=== PATIENT | female | born 1960 | race Caucasian/White ===

== ENCOUNTER 2017-01-30 12:33 | Emergency (ER) | payer MEDICARE ==
--- NOTE | 2017-01-30 13:23 | RAD ---
Indication cough. PA and lateral views of the chest were obtained. Note is made of a previous examination 10/25/2007. The heart and pulmonary vessels are unremarkable. The lungs are clear. There is a densely calcified granuloma in the right lower lobe similar to a study October 24, 2007 and well characterized on a CT examination October 11, 2006. There is no pleural fluid. There is no pneumothorax. Visualized bony structures appear grossly intact. IMPRESSION: No acute or focal process seen in the chest
--- NOTE | 2017-01-30 13:31 | PHYS DOC ---
Past Medical History Past Medical History: Other Additional Past Medical Histor: chronic back pain Past Surgical History: No Surgical History Additional Information: 10/02 ppd Alcohol Use: None Drug Use: Opiates Social History Narrative: prescribed Adult General Chief Complaint Chief Complaint: cough, sinus congestion, weight loss, rash HPI HPI Patient is a 56 year old female who presents with greater than 1 month of feeling drained, cough, sinus drainage. She's also had intermittent "rash" on bilateral thighs, burning in nature, wounds heal and then resolve with new lesions appearing. No recent steroids, no other known sick contacts. Pt was told she had shingles. Denies fevers, reports 20pound weight loss in 3-4 months, no change in bowel movements or urination. Has pcp in [place]. Review of Systems Review of Systems Constitutional: Denies fever or chills [] Eyes: Denies change in visual acuity, redness, or eye pain [] HENT: per hpi Respiratory: per hpi Cardiovascular: No additional information not addressed in HPI [] GI: Denies abdominal pain, nausea, vomiting, bloody stools or diarrhea [] : Denies dysuria or hematuria [] Musculoskeletal: Denies back pain or joint pain [] Integument: per hpi Neurologic: Denies headache, focal weakness or sensory changes [] Allergies Allergies Allergies Coded Allergies Type Severity Reaction Last Updated Verified Penicillins Allergy Mild Nausea 01/30/17 Yes Sulfa (Sulfonamide Antibiotics) Allergy Mild Nausea 01/30/17 Yes Physical Exam Physical Exam Constitutional: Well developed, frail, thin, no acute distress, non-toxic appearance. [] HENT: Normocephalic, atraumatic, bilateral external ears normal, oropharynx moist, no oral exudates, nose normal. [] Eyes: PERRLA, EOMI, conjunctiva normal, no discharge. [] Neck: Normal range of motion, no tenderness, supple, no stridor. [] Cardiovascular:Heart rate regular with regular rhythm, no murmur [] Lungs & Thorax: Bilateral breath sounds clear to auscultation, no wheeze or crackles Abdomen: Bowel sounds normal, soft, no tenderness, no masses, no pulsatile masses. [] Skin: Warm, dry, circular lesions on buttocks and posterior thighs, maccular, some with abrased skin lesions, various stages, no surrounding erythema, satellite lesions on neck and face, few on lower abdomen. Back: No tenderness, no CVA tenderness. [] Extremities: No tenderness, no cyanosis, no clubbing, ROM intact, no edema. [] Neurologic: Alert and oriented X 3, normal motor function, normal sensory function, no focal deficits noted. [] Psychologic: Affect normal, judgement normal, mood normal. [] Current Patient Data Vital Signs Vital Signs Date Time Temp Pulse Resp B/P Pulse Ox O2 Delivery O2 Flow Rate FiO2 01/30/17 14:30 75 20 127/70 99 Room Air 01/30/17 12:56 98.6 98.6 Lab Values Laboratory Tests Test 01/30/17 13:20 White Blood Count 8.9x10^3/uL (4.0-11.0) Red Blood Count 5.33x10^6/uL (3.50-5.40) Hemoglobin 17.0g/dL (12.0-15.5) H Hematocrit 49.0% (36.0-47.0) H Mean Corpuscular Volume 92fL (79-100) Mean Corpuscular Hemoglobin 32pg (25-35) Mean Corpuscular Hemoglobin Concent 35g/dL (31-37) Red Cell Distribution Width 13.6% (11.5-14.5) Platelet Count 279x10^3/uL (140-400) Neutrophils (%) (Auto) 58% (31-73) Lymphocytes (%) (Auto) 35% (24-48) Monocytes (%) (Auto) 5% (0-9) Eosinophils (%) (Auto) 2% (0-3) Basophils (%) (Auto) 1% (0-3) Neutrophils # (Auto) 5.2x10^3uL (1.8-7.7) Lymphocytes # (Auto) 3.1x10^3/uL (1.0-4.8) Monocytes # (Auto) 0.4x10^3/uL (0.0-1.1) Eosinophils # (Auto) 0.1x10^3/uL (0.0-0.7) Basophils # (Auto) 0.1x10^3/uL (0.0-0.2) Sodium Level 140mmol/L (136-145) Potassium Level 3.7mmol/L (3.5-5.1) Chloride Level 105mmol/L (98-107) Carbon Dioxide Level 28mmol/L (21-32) Anion Gap 7 (6-14) Blood Urea Nitrogen 10mg/dL (7-20) Creatinine 0.8mg/dL (0.6-1.0) Estimated GFR (Cockcroft-Gault) 74.5 BUN/Creatinine Ratio 13 (6-20) Glucose Level 104mg/dL (70-99) H Calcium Level 10.0mg/dL (8.5-10.1) Total Bilirubin 0.4mg/dL (0.2-1.0) Aspartate Amino Transferase (AST) 15U/L (15-37) Alanine Aminotransferase (ALT) 21U/L (14-59) Alkaline Phosphatase 112U/L (46-116) Total Protein 7.1g/dL (6.4-8.2) Albumin 3.7g/dL (3.4-5.0) Albumin/Globulin Ratio 1.1 (1.0-1.7) Laboratory Tests 01/30/17 13:20 Laboratory Tests 01/30/17 13:20 EKG EKG [] Radiology/Procedures Radiology/Procedures CXR: Indication cough. PA and lateral views of the chest were obtained. Note is made of a previous examination 10/25/2007. The heart and pulmonary vessels are unremarkable. The lungs are clear. There is a densely calcified granuloma in the right lower lobe similar to a study October 24, 2007 and well characterized on a CT examination October 11, 2006. There is no pleural fluid. There is no pneumothorax. Visualized bony structures appear grossly intact. IMPRESSION: No acute or focal process seen in the chest Course & Med Decision Making Course & Med Decision Making Pertinent Labs and Imaging studies reviewed. (See chart for details) based on complaints, labs and CXR performed. No acute findings. Will treat with antibiotics , doxycycline, and instructed pt to f/u with PCP closely. Recommended washing all bedding/clothes Diagnosis: sinusitis, unspecified rash Dragon Disclaimer Dragon Disclaimer This electronic medical record was generated, in whole or in part, using a voice recognition dictation system. Departure Departure Referrals: DELMIS BOURGEOIS (PCP) Scripts Doxycycline Hyclate 100 Mg Tablet1 Tab PO BID #14 TAB Prov:WEI CARLSON MD 01/30/17 WEI CARLSON MD January 30, 2017 13:31
[2017-01-30 13:32] LABS: BASO # 0.1 x10^3/uL (0.0-0.2); BASO % 1 % (0-3); EOS % 2 % (0-3); LYMPH # 3.1 x10^3/uL (1.0-4.8); LYMPH % 35 % (24-48); MEAN CORPUSCULAR HEMOGLOBIN 32 pg (25-35); MEAN CORPUSCULAR HGB CONC 35 g/dL (31-37); MEAN CORPUSCULAR VOLUME 92 fL (79-100); MONO % 5 % (0-9); NEUT % 58 % (31-73); PLATELET COUNT 279 x10^3/uL (140-400); RED BLOOD COUNT 5.33 x10^6/uL (3.50-5.40); RED CELL DISTRIBUTION WIDTH 13.6 % (11.5-14.5); WHITE BLOOD COUNT 8.9 x10^3/uL (4.0-11.0)
[2017-01-30 13:56] LABS: ALBUMIN 3.7 g/dL (3.4-5.0); ALBUMIN/GLOBULIN RATIO 1.1 (1.0-1.7); CREATININE 0.8 mg/dL (0.6-1.0); GFR 74.5; POTASSIUM 3.7 mmol/L (3.5-5.1); TOTAL BILIRUBIN 0.4 mg/dL (0.2-1.0); TOTAL PROTEIN 7.1 g/dL (6.4-8.2)
[2017-01-30 14:30] VITALS: BP 127/70
[2017-01-30] MEDS ORDERED: DOXY100T PO (14:44)
== END 2017-01-30 14:55 | disposition home or self-care (01) ==
LOC: ER 12:33
DX: J32.9 Chronic sinusitis, unspecified (principal); R21 Rash and other nonspecific skin eruption; G89.29 Other chronic pain; F11.10 Opioid abuse, uncomplicated; F17.200 Nicotine dependence, unspecified, uncomplicated; Z88.0 Allergy status to penicillin; Z88.2 Allergy status to sulfonamides
CPT/HCPCS: 36415; 71020; 80053; 85027; 99285-25

== ENCOUNTER 2017-03-11 15:14 | Emergency (ER) | payer MEDICARE ==
[~2017-03-11] VITALS: Ht 160 cm; Wt 54.4 kg
[~2017-03-11 15:14] MED LIST: DOXY100T PO
--- NOTE | 2017-03-11 16:34 | PHYS DOC ---
Past Medical History Past Medical History: Other Additional Past Medical Histor: chronic back pain Past Surgical History: Tubal ligation Additional Information: PPD Alcohol Use: None Drug Use: Opiates Adult General Chief Complaint Chief Complaint: Palpitations HPI HPI Patient is a 56 year old female who presents with palpitations the last 2 months. She states she's been having this fluttering sensation in her chest is been constant ever since she moved and this old house. She's also been complaining about sinus congestion the same amount time. She states she has pressure in the frontal aspect of her head. She denies any chest pain, but feels short of breath especially when she tries to exert herself or stand up. She does smoke one pack of cigarettes a day and she's done that for the last 40 years. She denies any alcohol or drug use. Review of Systems Review of Systems Constitutional: Denies fever or chills [] Eyes: Denies change in visual acuity, redness, or eye pain [] HENT: Denies nasal congestion or sore throat [] Respiratory: Denies cough, positive for intermittent shortness of breath [] Cardiovascular: No additional information not addressed in HPI [] GI: Denies abdominal pain, nausea, vomiting, bloody stools or diarrhea [] : Denies dysuria or hematuria [] Musculoskeletal: Denies back pain or joint pain [] Integument: Denies rash or skin lesions [] Neurologic: Denies headache, focal weakness or sensory changes [] Endocrine: Denies polyuria or polydipsia [] Current Medications Current Medications Current Medications Medications (Trade) Dose Ordered Sig/Jackie Start Time Stop Time Status Last Admin Dose Admin Iohexol (Omnipaque 300 Mg/ml) 75 ml 1X ONCE 03/11/17 18:15 03/11/17 18:16 DC 03/11/17 18:14 75 ML Allergies Allergies Allergies Coded Allergies Type Severity Reaction Last Updated Verified Penicillins Allergy Mild Nausea 01/30/17 Yes Sulfa (Sulfonamide Antibiotics) Allergy Mild Nausea 01/30/17 Yes Physical Exam Physical Exam Constitutional: Well developed, well nourished, no acute distress, non-toxic appearance. [] HENT: Normocephalic, atraumatic, bilateral external ears normal, oropharynx moist, no oral exudates, nose normal. [] Eyes: PERRLA, EOMI, conjunctiva normal, no discharge. [] Neck: Normal range of motion, no tenderness, supple, no stridor. [] Cardiovascular:Heart rate regular rhythm, no murmur [] Lungs & Thorax: Bilateral breath sounds clear to auscultation [] Abdomen: Bowel sounds normal, soft, no tenderness, no masses, no pulsatile masses. [] Skin: Warm, dry, no erythema, no rash. [] Back: No tenderness, no CVA tenderness. [] Extremities: No tenderness, no cyanosis, no clubbing, ROM intact, no edema. [] Neurologic: Alert and oriented X 3, normal motor function, normal sensory function, no focal deficits noted. [] Psychologic: Affect normal, judgement normal, mood normal. [] Current Patient Data Vital Signs Vital Signs Date Time Temp Pulse Resp B/P (MAP) Pulse Ox O2 Delivery O2 Flow Rate FiO2 03/11/17 15:45 98.2 76 16 134/82 (99) 99 Room Air 98.2 Lab Values Laboratory Tests Test 03/11/17 16:10 03/11/17 16:26 03/11/17 17:00 03/11/17 17:15 POC Urine HCG, Qualitative Hcg negative (Negative) White Blood Count 8.9 x10^3/uL (4.0-11.0) Red Blood Count 4.94 x10^6/uL (3.50-5.40) Hemoglobin 15.8 g/dL (12.0-15.5) H Hematocrit 46.0 % (36.0-47.0) Mean Corpuscular Volume 93 fL (79-100) Mean Corpuscular Hemoglobin 32 pg (25-35) Mean Corpuscular Hemoglobin Concent 35 g/dL (31-37) Red Cell Distribution Width 13.7 % (11.5-14.5) Platelet Count 264 x10^3/uL (140-400) Neutrophils (%) (Auto) 48 % (31-73) Lymphocytes (%) (Auto) 44 % (24-48) Monocytes (%) (Auto) 6 % (0-9) Eosinophils (%) (Auto) 2 % (0-3) Basophils (%) (Auto) 1 % (0-3) Neutrophils # (Auto) 4.3 x10^3uL (1.8-7.7) Lymphocytes # (Auto) 3.9 x10^3/uL (1.0-4.8) Monocytes # (Auto) 0.5 x10^3/uL (0.0-1.1) Eosinophils # (Auto) 0.2 x10^3/uL (0.0-0.7) Basophils # (Auto) 0.1 x10^3/uL (0.0-0.2) Sodium Level 141 mmol/L (136-145) Potassium Level 3.4 mmol/L (3.5-5.1) L Chloride Level 104 mmol/L (98-107) Carbon Dioxide Level 28 mmol/L (21-32) Anion Gap 9 (6-14) Blood Urea Nitrogen 11 mg/dL (7-20) Creatinine 0.7 mg/dL (0.6-1.0) Estimated GFR (Cockcroft-Gault) 86.9 Glucose Level 85 mg/dL (70-99) Calcium Level 9.3 mg/dL (8.5-10.1) Magnesium Level 2.2 mg/dL (1.8-2.4) Total Bilirubin 0.2 mg/dL (0.2-1.0) Direct Bilirubin < 0.1 mg/dL (0.0-0.2) Aspartate Amino Transferase (AST) 14 U/L (15-37) L Alanine Aminotransferase (ALT) 20 U/L (14-59) Alkaline Phosphatase 122 U/L (46-116) H Creatine Kinase 31 U/L (26-192) Creatine Kinase MB (Mass) < 0.5 ng/mL (0.0-3.6) Creatine Kinase MB Relative Index 1.6 % (0-4) Troponin I Quantitative < 0.017 ng/mL (0.000-0.055) HC-Fto-U-Type Natriuretic Peptide 133 pg/mL (0-124) H Total Protein 7.2 g/dL (6.4-8.2) Albumin 3.5 g/dL (3.4-5.0) Thyroid Stimulating Hormone (TSH) 1.072 uIU/mL (0.358-3.74) Serum Test, Qualitative Negative (NEG) Urine Collection Type Unknown Urine Color Yellow Urine Clarity Clear Urine pH 7.0 Urine Specific Rousseau <=1.005 Urine Protein Negative mg/dL (NEG-TRACE) Urine Glucose (UA) Negative mg/dL (NEG) Urine Ketones (Stick) Negative mg/dL (NEG) Urine Blood Negative (NEG) Urine Nitrite Negative (NEG) Urine Bilirubin Negative (NEG) Urine Urobilinogen Dipstick 0.2 mg/dL (0.2 mg/dL) Urine Leukocyte Esterase Negative (NEG) Urine RBC 0 /HPF (0-2) Urine WBC 0 /HPF (0-4) Urine Squamous Epithelial Cells Occ /LPF Urine Bacteria 0 /HPF (0-FEW) D-Dimer (Usha) 1.04 ug/mlFEU (0.00-0.50) H Laboratory Tests 03/11/17 16:26 Laboratory Tests 03/11/17 16:26 EKG EKG EKG shows sinus rhythm with a rate of [address] elevations or T- wave inversions appreciated, normal axis, QTC 417 ms, as interpreted by me. Radiology/Procedures Radiology/Procedures [place] [id number] IMAGING REPORT Signed PATIENT: TRINA KEMP ACCOUNT: [id number] : 1960 LOCATION: ER AGE: 56 SEX: F EXAM STATUS: REG ER ORD. PHYSICIAN: NOY LUJAN MD REASON: palpatations PROCEDURE: PORTABLE CHEST 1V Indication heart palpitations. A single view of the chest was obtained and is compared to a study 01/30/2017. The heart and pulmonary vessels appear normal. The mediastinum appears normal. A calcified granuloma in the right lung and calcified right hilar lymph nodes are noted. There is no acute parenchymal infiltrate. There is no pleural fluid or pneumothorax. There has not been a significant change in the appearance of the chest compared to the previous exam. IMPRESSION: No acute or focal process. No significant change DICTATED and SIGNED BY: MONIKA KOVACS MD DATE: 03/11/171658 CC: NOY LUJAN MD; DELMIS BOURGEOIS [address] [address] IMAGING REPORT Signed PATIENT: TRINA KEMP ACCOUNT: [id number] : 1960 LOCATION: ER AGE: 56 SEX: F EXAM STATUS: REG ER ORD. PHYSICIAN: NOY LJUAN MD REASON: R/O PE PROCEDURE: CT ANGIOGRAPHY CHEST CT angiography chest with contrast TECHNIQUE: Helical CT imaging of the chest with multiplanar 3-D MIP reconstructions of the pulmonary arteries to assess for emboli with 75 mL Omnipaque 300 intravenous contrast. HISTORY: Shortness of breath. COMPARISON: CT chest October 11, 2006. FINDINGS: Thoracic aorta is unremarkable. Esophagus unremarkable. Heart size normal. No pulmonary artery embolus. 2 cm left adrenal nodule density -11 units typical of an adenoma. Calcified granulomas of the mediastinum, right hilum and right lung base. Small calcified granuloma left lower lobe. Mild changes of centrilobular pulmonary emphysema. Mild central bronchial wall thickening. No pneumothorax, pulmonary opacities or pleural effusions. Right apical upper lobe subpleural 4 mm nodule image 28. No pleural effusions. No pulmonary opacities. Bones unremarkable. IMPRESSION: 1. No acute process. No pulmonary artery embolus. 2. 4 mm right upper lobe pulmonary nodule stable to a study from 2006 considered benign. 3. Centrilobular pulmonary emphysema. 4. Sequela of a prior granulomatous infection. Exposure: One or more of the following individualized dose reduction techniques were utilized for this examination: 1. Automated exposure control 2. Adjustment of the mA and/or kV according to patient size 3. Use of iterative reconstruction technique Electronically signed by: Chandrakant Kay MD (03/11/2017 6:54 PM) DICTATED and SIGNED BY: CHANDRAKANT KAY MD DATE: 03/11/171845 CC: NOY LUJAN MD; DELMIS BOURGEOIS Impressions: Palpitations Sinus congestion Course & Med Decision Making Course & Med Decision Making Pertinent Labs and Imaging studies reviewed. (See chart for details) , EKG didn't show any acute abnormalities other than an elevated d-dimer. CT Angio perform do not show any acute abnormalities. The symptoms been going on for weeks to months also do not feel that there is any acute process justifies admission or other abnormalities. Patient is being discharged home she can use [id number] Claritin. Return precautions given she is agreeable to the plan and being discharged in stable condition at this time. We'll refer to cardiology if her symptoms persist. Dragon Disclaimer Dragon Disclaimer This electronic medical record was generated, in whole or in part, using a voice recognition dictation system. Departure Departure Impression: Primary Impression: Heart palpitations Additional Impression: Sinus congestion Referrals: DELMIS BOURGEOIS (PCP) MEREDITH ROBB MD Patient Instructions: Palpitations Additional Instructions: The CAT scan of your chest did not show any blood clots or other abnormalities. Your lab work, EKG, are all within normal limits. Your being discharged home. You might need to follow-up with a [employer] if you continue having the symptoms he can see Dr. Bailey or [employer] that your primary care physician suggests. N [id number] for nasal congestion. Return ER for worsening conditions or other concerns. Please follow-up with her primary care physician within the next week. Problem Qualifiers NOY LUJAN MD Mar 11, 2017 16:34
[2017-03-11 16:41] LABS: BASO # 0.1 x10^3/uL (0.0-0.2); BASO % 1 % (0-3); EOS % 2 % (0-3); HEMOGLOBIN 15.8 g/dL (12.0-15.5); LYMPH # 3.9 x10^3/uL (1.0-4.8); LYMPH % 44 % (24-48); MEAN CORPUSCULAR HEMOGLOBIN 32 pg (25-35); MEAN CORPUSCULAR HGB CONC 35 g/dL (31-37); MEAN CORPUSCULAR VOLUME 93 fL (79-100); MONO % 6 % (0-9); NEUT % 48 % (31-73); PLATELET COUNT 264 x10^3/uL (140-400); RED BLOOD COUNT 4.94 x10^6/uL (3.50-5.40); RED CELL DISTRIBUTION WIDTH 13.7 % (11.5-14.5); WHITE BLOOD COUNT 8.9 x10^3/uL (4.0-11.0)
[2017-03-11 16:50] LABS: NEG OBC SER NEG; POS OBC SER POS
[2017-03-11 16:51] LABS: ANION GAP 9 (6-14); BLOOD UREA NITROGEN 11 mg/dL (7-20); CALCIUM 9.3 mg/dL (8.5-10.1); CARBON DIOXIDE 28 mmol/L (21-32); CHLORIDE 104 mmol/L (98-107); CREATININE 0.7 mg/dL (0.6-1.0); GFR 86.9; GLUCOSE 85 mg/dL (70-99); POTASSIUM 3.4 mmol/L (3.5-5.1); SODIUM 141 mmol/L (136-145)
[2017-03-11 16:56] LABS: ALBUMIN 3.5 g/dL (3.4-5.0); ALK PHOS 122 U/L (46-116); ALT (SGPT) 20 U/L (14-59); AST (SGOT) 14 U/L (15-37); DIRECT BILIRUBIN < 0.1 mg/dL (0.0-0.2); MAGNESIUM 2.2 mg/dL (1.8-2.4); TOTAL BILIRUBIN 0.2 mg/dL (0.2-1.0); TOTAL PROTEIN 7.2 g/dL (6.4-8.2)
--- NOTE | 2017-03-11 17:03 | RAD ---
Indication heart palpitations. A single view of the chest was obtained and is compared to a study 01/30/2017. The heart and pulmonary vessels appear normal. The mediastinum appears normal. A calcified granuloma in the right lung and calcified right hilar lymph nodes are noted. There is no acute parenchymal infiltrate. There is no pleural fluid or pneumothorax. There has not been a significant change in the appearance of the chest compared to the previous exam. IMPRESSION: No acute or focal process. No significant change
[2017-03-11 17:06] LABS: CREATINE KINASE 31 U/L (26-192)
[2017-03-11 17:08] LABS: CKMB MASS < 0.5 ng/mL (0.0-3.6)
[2017-03-11 17:12] LABS: BILIRUBIN,URINE NEGATIVE (NEG); GLUCOSE,URINE NEGATIVE (NEG); NITRITE,URINE NEGATIVE (NEG); PROTEIN,URINE NEGATIVE (NEG-TRACE); UROBILINOGEN,URINE 0.2 mg/dL (0.2 mg/dL)
[2017-03-11 17:21] LABS: BACTERIA,URINE 0 /HPF (0-FEW); RBC,URINE 0 /HPF (0-2); SQUAMOUS EPITHELIAL CELL,UR OCC /LPF; WBC,URINE 0 /HPF (0-4)
[2017-03-11 17:45] VITALS: BP 109/69
[2017-03-11] MEDS ORDERED: IOHEXOL 300 MG/ML 75 ML VIAL IV ONE (18:15)
--- NOTE | 2017-03-11 18:57 | RAD ---
CT angiography chest with contrast TECHNIQUE: Helical CT imaging of the chest with multiplanar 3-D MIP reconstructions of the pulmonary arteries to assess for emboli with 75 mL Omnipaque 300 intravenous contrast. HISTORY: Shortness of breath. COMPARISON: CT chest October 11, 2006. FINDINGS: Thoracic aorta is unremarkable. Esophagus unremarkable. Heart size normal. No pulmonary artery embolus. 2 cm left adrenal nodule density -11 units typical of an adenoma. Calcified granulomas of the mediastinum, right hilum and right lung base. Small calcified granuloma left lower lobe. Mild changes of centrilobular pulmonary emphysema. Mild central bronchial wall thickening. No pneumothorax, pulmonary opacities or pleural effusions. Right apical upper lobe subpleural 4 mm nodule image 28. No pleural effusions. No pulmonary opacities. Bones unremarkable. IMPRESSION: 1. No acute process. No pulmonary artery embolus. 2. 4 mm right upper lobe pulmonary nodule stable to a study from 2006 considered benign. 3. Centrilobular pulmonary emphysema. 4. Sequela of a prior granulomatous infection. Exposure: One or more of the following individualized dose reduction techniques were utilized for this examination: 1. Automated exposure control 2. Adjustment of the mA and/or kV according to patient size 3. Use of iterative reconstruction technique Electronically signed by: Bruce Kay MD (03/11/2017 6:54 PM)
--- NOTE | 2017-03-13 08:50 | EKG ---
[facility] [address] [place] [address] Test Date: 2017-03-11 Test Time: 15:47:25 Pat Name: TRINA KEMP Department: Room: Gender: F Operators Teacher: : 1960 Requested By: NOY LUJAN Order Number: [id number] Reading MD: Farhan Del Valle Measurements Intervals [place] Rate: 67 P: 65 RI: 122 QRS: 68 QRSD: 78 T: 45 QT: 392 QTc: 417 Interpretive Statements SINUS RHYTHM Electronically Signed On 03-13-2017 8:50:38 CDT by Farhan Del Valle
== END 2017-03-11 19:22 | disposition home or self-care (01) ==
LOC: ER 15:14
DX: R00.2 Palpitations (principal); R09.81 Nasal congestion; R06.02 Shortness of breath; R79.89 Other specified abnormal findings of blood chemistry; G89.29 Other chronic pain; F11.10 Opioid abuse, uncomplicated; F17.210 Nicotine dependence, cigarettes, uncomplicated; Z88.2 Allergy status to sulfonamides; Z88.0 Allergy status to penicillin
CPT/HCPCS: 36415; 71010; 71275; 80048; 80076; 81001; 81025; 82553; 83735; 83880; 84443; 84484; 84703; 85027; 85379; 93005; 99285; Q9967

== ENCOUNTER 2017-05-04 10:56 | Emergency (ER) | payer MEDICARE ==
--- NOTE | 2017-05-04 12:00 | EKG ---
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
[2017-05-04 12:22] LABS: BILIRUBIN,URINE NEGATIVE (NEG); GLUCOSE,URINE NEGATIVE (NEG); NITRITE,URINE NEGATIVE (NEG); PH,URINE 6.5; PROTEIN,URINE NEGATIVE (NEG-TRACE); UROBILINOGEN,URINE 0.2 mg/dL (0.2 mg/dL)
[2017-05-04 12:32] LABS: BACTERIA,URINE 0 /HPF (0-FEW); RBC,URINE 0 /HPF (0-2); WBC,URINE 0 /HPF (0-4)
[2017-05-04 12:53] LABS: HEMATOCRIT 47.8 % (36.0-47.0); HEMOGLOBIN 16.1 g/dL (12.0-15.5); RED BLOOD COUNT 5.1 x10^6/uL (3.50-5.40); RED CELL DISTRIBUTION WIDTH 14.1 % (11.5-14.5); WHITE BLOOD COUNT 9.4 x10^3/uL (4.0-11.0)
[2017-05-04 13:04] LABS: CALCIUM 9.3 mg/dL (8.5-10.1); CREATININE 0.8 mg/dL (0.6-1.0); GFR 74.2; POTASSIUM 4.5 mmol/L (3.5-5.1)
[2017-05-04 13:10] LABS: ALBUMIN 3.3 g/dL (3.4-5.0); ALBUMIN/GLOBULIN RATIO 0.8 (1.0-1.7); TOTAL BILIRUBIN 0.2 mg/dL (0.2-1.0); TOTAL PROTEIN 7.3 g/dL (6.4-8.2)
--- NOTE | 2017-05-04 13:29 | RAD ---
CT of the head without contrast, 05/04/2017: History: Visual changes, altered mental status There is mild cerebral atrophy. The ventricles are within normal limits in size. There is no shift of the midline structures. There is no evidence of acute intracranial hemorrhage or mass effect. IMPRESSION: No acute intracranial abnormality is detected. PQRS Compliance Statement: One or more of the following individualized dose reduction techniques were utilized for this examination: 1. Automated exposure control 2. Adjustment of the mA and/or kV according to patient size 3. Use of iterative reconstruction technique
--- NOTE | 2017-05-04 13:39 | RAD ---
Portable chest, 05/04/2017: History: Cough, pounding and chest Comparison is made to a study from 03/11/2017. The heart size and pulmonary vascularity are normal. There are granulomatous calcifications in the right chest. No acute infiltrate is seen. There is no evidence of pleural fluid. IMPRESSION: No acute cardiopulmonary abnormality is detected.
[2017-05-04 14:41] VITALS: BP 136/79
--- NOTE | 2017-05-04 19:02 | ED.ADGEN ---
Past Medical History Past Medical History: Other Additional Past Medical Histor: chronic back pain Past Surgical History: Tubal ligation Alcohol Use: None Drug Use: Opiates Adult General Chief Complaint Chief Complaint: DIZZY/LIGHT HEADED HPI HPI Patient is a 57 year old female presents with dizziness, described as difficulty concentrating, impaired short-term memory memory and feeling off for the past 2 weeks. Patient denies headache, blurred vision, change in vision, neck pain, chest pain, palpitations, extremity weakness or loss of sensation. Patient denies fever, chills, nausea vomiting and sweats. No cough, shortness of breath, flank pain, urinary frequency urgency. Reports rash to scalp for the past several days. Patient has not sought medical attention prior to her visit today. Patient has history of chronic back pain and takes hydrocodone on an as- needed basis, but states she is not taking extra medication. She denies drugs or alcohol. Patient is an active smoker reports 11 pound weight loss in the past several months Review of Systems Review of Systems Review symptoms as per history of present illness. All other review symptoms are negative. Allergies Allergies Allergies Coded Allergies Type Severity Reaction Last Updated Verified Penicillins Allergy Mild Nausea 01/30/17 Yes Sulfa (Sulfonamide Antibiotics) Allergy Mild Nausea 01/30/17 Yes Physical Exam Physical Exam Constitutional: Well developed, well nourished, no acute distress, non-toxic appearance. [] HENT: Normocephalic, atraumatic, bilateral external ears normal, oropharynx moist, no oral exudates, nose normal. [] Eyes: PERRLA, EOMI, conjunctiva normal, no discharge. [] Neck: Normal range of motion, no tenderness, supple, no stridor. [] Cardiovascular:Heart rate regular rhythm, no murmur [] Lungs & Thorax: Respirations nonlabored, lung sounds clear. [] Abdomen: Bowel sounds normal, soft, no tenderness, no masses, no pulsatile masses. [] Skin: Warm, picking lesions or sores on scalp and on lower extremities. [] Back: No tenderness. [] Extremities: No tenderness, no cyanosis, no clubbing, ROM intact, no edema. [] Neurologic: Alert and oriented X 3, cranial nerves grossly intact, normal motor function, normal sensory function, no focal deficits noted. [] Psychologic: Affect normal, judgement normal, mood normal. [] Current Patient Data Vital Signs Vital Signs Date Time Temp Pulse Resp B/P (MAP) Pulse Ox O2 Delivery O2 Flow Rate FiO2 05/04/17 14:41 82 22 136/79 (98) 99 Room Air 05/04/17 11:00 98.1 98.1 Lab Values Laboratory Tests Test 05/04/17 11:33 05/04/17 11:52 05/04/17 12:40 Urine Collection Type Unknown Urine Color Yellow Urine Clarity Clear Urine pH 6.5 Urine Specific [place] <=1.005 Urine Protein Negative mg/dL (NEG-TRACE) Urine Glucose (UA) Negative mg/dL (NEG) Urine Ketones (Stick) Negative mg/dL (NEG) Urine Blood Negative (NEG) Urine Nitrite Negative (NEG) Urine Bilirubin Negative (NEG) Urine Urobilinogen Dipstick 0.2 mg/dL (0.2 mg/dL) Urine Leukocyte Esterase Negative (NEG) Urine RBC 0 /HPF (0-2) Urine WBC 0 /HPF (0-4) Urine Bacteria 0 /HPF (0-FEW) Glucose (Fingerstick) 104 mg/dL (70-99) H White Blood Count 9.4 x10^3/uL (4.0-11.0) Red Blood Count 5.10 x10^6/uL (3.50-5.40) Hemoglobin 16.1 g/dL (12.0-15.5) H Hematocrit 47.8 % (36.0-47.0) H Mean Corpuscular Volume 94 fL (79-100) Mean Corpuscular Hemoglobin 32 pg (25-35) Mean Corpuscular Hemoglobin Concent 34 g/dL (31-37) Red Cell Distribution Width 14.1 % (11.5-14.5) Platelet Count 305 x10^3/uL (140-400) Sodium Level 141 mmol/L (136-145) Potassium Level 4.5 mmol/L (3.5-5.1) Chloride Level 106 mmol/L (98-107) Carbon Dioxide Level 30 mmol/L (21-32) Anion Gap 5 (6-14) L Blood Urea Nitrogen 7 mg/dL (7-20) Creatinine 0.8 mg/dL (0.6-1.0) Estimated GFR (Cockcroft-Gault) 74.2 BUN/Creatinine Ratio 9 (6-20) Glucose Level 99 mg/dL (70-99) Calcium Level 9.3 mg/dL (8.5-10.1) Total Bilirubin 0.2 mg/dL (0.2-1.0) Aspartate Amino Transferase (AST) 16 U/L (15-37) Alanine Aminotransferase (ALT) 32 U/L (14-59) Alkaline Phosphatase 186 U/L (46-116) H Total Protein 7.3 g/dL (6.4-8.2) Albumin 3.3 g/dL (3.4-5.0) L Albumin/Globulin Ratio 0.8 (1.0-1.7) L Laboratory Tests 05/04/17 12:40 Laboratory Tests 05/04/17 12:40 EKG EKG [EKG: Per Dr. Crenshaw.] Radiology/Procedures Radiology/Procedures [CT head/chest x-ray: No acute disease per radiology report] Course & Med Decision Making Course & Med Decision Making Pertinent Labs and Imaging studies reviewed. (See chart for details) [Patient without focal neuro leg just symptoms with vague symptoms of dizziness. Lab work consistent with polycythemia secondary to smoking. Alk phosphatase is elevated, the significance of which is unknown. The patient's smoking history she is certainly at risk for lung or bone cancer. Patient left the emergency department AGAINST MEDICAL ADVICE prior to review findings and discharge. I was in with a critical patient and the patient did not wish to stay until I was able to speak with her.] Dragon Disclaimer Dragon Disclaimer This electronic medical record was generated, in whole or in part, using a voice recognition dictation system. MINI CAO DO May 04, 2017 19:02
== END 2017-05-04 15:00 | disposition left against medical advice (07) ==
LOC: ER 10:56
DX: R42 Dizziness and giddiness (principal); R79.89 Other specified abnormal findings of blood chemistry; G89.29 Other chronic pain; F11.10 Opioid abuse, uncomplicated; R21 Rash and other nonspecific skin eruption; F17.200 Nicotine dependence, unspecified, uncomplicated; R63.4 Abnormal weight loss; Z88.0 Allergy status to penicillin; Z88.2 Allergy status to sulfonamides; Z98.51 Tubal ligation status
CPT/HCPCS: 36415; 70450; 71010; 80053; 81001; 82962; 85027; 93005; 99285-25

== ENCOUNTER 2017-06-22 15:07 | Emergency (ER) | payer MEDICARE ==
[~2017-06-22] VITALS: Ht 160 cm; Wt 49.9 kg
[2017-06-22 16:24] VITALS: BP 140/75
--- NOTE | 2017-06-22 16:38 | PHYS DOC ---
Past Medical History Past Medical History: Other Additional Past Medical Histor: chronic back pain Past Surgical History: Tubal ligation Additional Information: 8-9 cigarettes daily Alcohol Use: None Drug Use: Opiates Adult General Chief Complaint Chief Complaint: HEADACHE HPI HPI Patient is a 57 year old female presents with nasal congestion, rhinorrhea and sinus congestion with dizziness. Symptom onset was 3 weeks ago. Patient points of headache has been taking hydrocodone for pain. She is not currently on any decongestants her mucolytic's or antibiotics. Patient has not been evaluated for symptoms prior to the ED today. Denies nausea, vomiting, neck stiffness, rash. No other acute symptoms or complaints. Patient is a current smoker. Review of Systems Review of Systems ROS as per HPI. Allergies Allergies Allergies Coded Allergies Type Severity Reaction Last Updated Verified Penicillins Allergy Mild Nausea 01/30/17 Yes Sulfa (Sulfonamide Antibiotics) Allergy Mild Nausea 01/30/17 Yes Physical Exam Physical Exam Constitutional: Well developed, well nourished, no acute distress, non-toxic appearance. [] HENT: Normocephalic, atraumatic, bilateral external ears normal, oropharynx moist, turgor pharyngeal swelling,, nose,clear rhinorrhea, turbinate erythema with swelling. Sinus pain, no tenderness. [] Eyes: PERRLA, EOMI, conjunctiva injected with increased tear film [] Neck: Normal range of motion. [] Cardiovascular:Heart rate regular rhythm.[] Lungs & Thorax: Patient's nonlabored, breath sounds diminished[] Abdomen: Bowel sounds normal, soft, no tenderness, no masses, no pulsatile masses. [] Skin: Warm, dry, no erythema, no rash. [] Back: No tenderness, no CVA tenderness. [] Extremities: No tenderness, no cyanosis, no clubbing, ROM intact, no edema. [] Neurologic: Alert and oriented, normal motor function, normal sensory function, no focal deficits noted. [] Current Patient Data Vital Signs Vital Signs Date Time Temp Pulse Resp B/P (MAP) Pulse Ox O2 Delivery O2 Flow Rate FiO2 06/22/17 15:18 98.3 78 16 160/87 (111) 99 Room Air 98.3 EKG EKG [] Radiology/Procedures Radiology/Procedures [] Course & Med Decision Making Course & Med Decision Making Pertinent Labs and Imaging studies reviewed. (See chart for details) [Recurrent rhinosinusitis possibly related to allergies. We'll treat supportively with PCP follow-up.] Noel Disclaimer Dragon Disclaimer This electronic medical record was generated, in whole or in part, using a voice recognition dictation system. Departure Departure Impression: Primary Impression: Sinus congestion Disposition: 01 HOME, SELF-CARE Condition: GOOD Patient Instructions: Sinus Headache, [id number] Additional Instructions: Please take medications as directed and follow-up with your PCP in 2-3 days for reevaluation. MINI CAO DO Jun 22, 2017 16:38
== END 2017-06-22 16:30 | disposition home or self-care (01) ==
LOC: ER 15:07
DX: J34.89 Other specified disorders of nose and nasal sinuses (principal); R09.81 Nasal congestion; R42 Dizziness and giddiness; R51 Headache; G89.29 Other chronic pain; F17.200 Nicotine dependence, unspecified, uncomplicated; Z88.0 Allergy status to penicillin; Z88.2 Allergy status to sulfonamides
CPT/HCPCS: 99283

== ENCOUNTER 2021-06-28 12:54 | Inpatient (IN) | payer MEDICARE, OTHER ==
[~2021-06-28] VITALS: Ht 157.5 cm; Wt 64.8 kg
[~2021-06-28 12:54] MED LIST changes: +ACET325T9 PO; +AMLO-186 PO; +CALC200T3 PO; +DIVA125C3 PO; +FOLI0.8C PO; +GUAI-108 PO; +GUAI-519 PO; +MELA3TAB4 PO; +MULT1TAB92 PO; +NITR100C6 PO; +POLY17PO29 PO; +PRED20TA PO; +QUET25TA5 PO; +QUET50TA3 PO; +SERT100T PO; +THIA100T57 PO; +TRAZ-118 PO
--- NOTE | 2021-06-28 14:03 | RAD ---
XR CHEST 1V History: Seizure. Comparison: 08/03/2020 Technique: Portable AP radiograph of the chest. Findings: The lungs are hypoinflated with mild bibasilar opacities, likely atelectasis. No pleural effusion or pneumothorax. Calcified right lower lobe granuloma. Cardiac silhouette and pulmonary vasculature are within normal limits. Osseous structures and soft tissues unremarkable. Impression: 1. Low lung volumes with bibasilar opacities, likely atelectasis. Electronically signed by: Tej Bradshaw MD (06/28/2021 2:01 PM) [id number]
--- NOTE | 2021-06-28 14:26 | PHYS DOC ---
Past Medical History Past Medical History: COPD, Depression, Schizophrenia, Other Additional Past Medical Histor: chronic back pain ([facility]) Past Surgical History: Tubal ligation ([facility]) Smoking Status: Former Smoker Alcohol Use: None Drug Use: Opiates ([facility]ASSAN) General Adult EDM: Chief Complaint: SEIZURE HPI: HPI: Patient is a 61 year old female with history of hypertension, encephalopathy, substance use disorder, depression and baseline cognitive deficits who presents from nursing facility with 5-minute seizure. Patient has no history of epilepsy, however takes Depakote every day to treat BPD. long term reports that she had a 5-minute tonic-clonic seizure followed by 8 minutes of intermittent seizing and postictal state. long term reports that she was nonverbal after this 13-minute episode, while at baseline she has expressive aphasia. There is no reported head trauma. Further history is unable to be obtained secondary to patient's baseline status. (FCO HASSAN) Review of Systems: Review of Systems: Unable to be obtained secondary to patient's baseline mental/verbal status. ([facility]CO HASSAN) Heart Score: C/O Chest Pain: N/A ([facility]CO [facility]ASSAN) Allergies: Allergies: Allergies Coded Allergies Type Severity Reaction Last Updated Verified Penicillins Adverse Reaction Intermediate Nausea 08/08/20 Yes Sulfa (Sulfonamide Antibiotics) Adverse Reaction Intermediate Nausea 08/08/20 Yes ([facility]ASSAN) Physical Exam: PE: Constitutional: Well developed, well nourished, no acute distress, non-toxic appearance. HENT: Normocephalic, atraumatic, bilateral external ears normal, oropharynx m oist, nose normal. Eyes: PERRLA, conjunctiva normal, no discharge. Neck: Normal range of motion, no tenderness, supple, no stridor. No nuchal rigidity. Cardiovascular: Heart rate regular rhythm, no murmur. Lungs & Thorax: Right base decreased breath sounds. No wheezing, rales or rhonchi. Abdomen: Bowel sounds normal, soft, no tenderness, no masses, no pulsatile masses. Skin: Warm, dry, no erythema, no rash. Back: No tenderness, no CVA tenderness. Extremities: No tenderness, no cyanosis, no clubbing, ROM intact, no edema. Neurologic: Alert and to person only, no focal deficits noted. (FCO HASSAN) Current Patient Data: Labs: Laboratory Tests Test 06/28/21 15:25 06/28/21 17:50 White Blood Count 13.8 x10^3/uL (4.0-11.0) Red Blood Count 4.92 x10^6/uL (3.50-5.40) Hemoglobin 15.8 g/dL (12.0-15.5) Hematocrit 47.2 % (36.0-47.0) Mean Corpuscular Volume 96 fL (79-100) Mean Corpuscular Hemoglobin 32 pg (25-35) Mean Corpuscular Hemoglobin Concent 33 g/dL (31-37) Red Cell Distribution Width 14.1 % (11.5-14.5) Platelet Count 187 x10^3/uL (140-400) Neutrophils (%) (Auto) 81 % (31-73) Lymphocytes (%) (Auto) 13 % (24-48) Monocytes (%) (Auto) 5 % (0-9) Eosinophils (%) (Auto) 0 % (0-3) Basophils (%) (Auto) 0 % (0-3) Neutrophils # (Auto) 11.3 x10^3/uL (1.8-7.7) Lymphocytes # (Auto) 1.8 x10^3/uL (1.0-4.8) Monocytes # (Auto) 0.7 x10^3/uL (0.0-1.1) Eosinophils # (Auto) 0.0 x10^3/uL (0.0-0.7) Basophils # (Auto) 0.1 x10^3/uL (0.0-0.2) Sodium Level 141 mmol/L (136-145) Potassium Level 4.2 mmol/L (3.5-5.1) Chloride Level 106 mmol/L (98-107) Carbon Dioxide Level 27 mmol/L (21-32) Anion Gap 8 (6-14) Blood Urea Nitrogen 28 mg/dL (7-20) Creatinine 0.9 mg/dL (0.6-1.0) Estimated GFR (Cockcroft-Gault) 63.9 Glucose Level 96 mg/dL (70-99) Calcium Level 9.2 mg/dL (8.5-10.1) Valproic Acid (Depakene) Level 68 mcg/mL (50-100) Valproic Acid Last Dose Date Valproic Acid Last Dose Time Urine Collection Type U cath Urine Color Yellow Urine Clarity Clear Urine pH 6.5 (<5.0-8.0) Urine Specific [place] 1.025 (1.000-1.030) Urine Protein Negative mg/dL (NEG-TRACE) Urine Glucose (UA) Negative mg/dL (NEG) Urine Ketones (Stick) Trace mg/dL (NEG) Urine Blood Negative (NEG) Urine Nitrite Negative (NEG) Urine Bilirubin Negative (NEG) Urine Urobilinogen Dipstick 1.0 mg/dL (0.2 mg/dL) Urine Leukocyte Esterase Moderate (NEG) Urine RBC Occ /HPF (0-2) Urine WBC 20-40 /HPF (0-4) Urine Squamous Epithelial Cells Few /LPF Urine Bacteria Few /HPF (0-FEW) Urine Mucus Marked /LPF Vital Signs: Vital Signs Date Time Temp Pulse Resp B/P (MAP) Pulse Ox O2 Delivery O2 Flow Rate FiO2 06/28/21 15:30 84 14 116/67 (83) 97 2.0 06/28/21 13:30 86 16 110/73 (85) 96 Nasal Cannula 2.0 06/28/21 13:00 86 16 119/75 (90) 88 Room Air 06/28/21 12:54 97.5 82 16 119/75 (90) 88 Room Air 97.5 (FCO HASSAN) Radiology/Procedures: Radiology/Procedures: PROCEDURE: PORTABLE CHEST 1V XR CHEST 1V History: Seizure. Comparison: 08/03/2020 Technique: Portable AP radiograph of the chest. Findings: The lungs are hypoinflated with mild bibasilar opacities, likely atelectasis. No pleural effusion or pneumothorax. Calcified right lower lobe granuloma. Cardiac silhouette and pulmonary vasculature are within normal limits. Osseous structures and soft tissues unremarkable. Impression: 1. Low lung volumes with bibasilar opacities, likely atelectasis. Electronically signed by: Tej Bradshaw MD (06/28/2021 2:01 PM) [id number] PROCEDURE: CT HEAD WO CONTRAST INDICATION: Reason: seizure / Spl. Instructions: / History: . COMPARISON: May 04, 2017 TECHNIQUE: Axial CT images obtained through the head. One or more of the following individualized dose reduction techniques were utilized for this examination: 1. Automated exposure control; 2. Adjustment of the mA and/or kV according to patient size; 3. Use of iterative reconstruction technique. FINDINGS: No significant midline shift. Diffuse prominence of the ventricles and sulci which appears increased from prior examination. Multifocal regions of low density within the white matter. No acute intracranial hemorrhage. Prominence of the subdural space most prominent in the frontal region bilaterally appear predominantly low density. For example at the bilateral frontal region this measures up to 20 mm in thickness. There are some minimal high density within a portion of it but this may be secondary to some vessels coursing through the area. IMPRESSION: * Diffuse prominence of the ventricles and sulci is seen and increased from prior examination. This can be seen with cerebral atrophy. * Prominence of the subdural space in the bilateral frontal region which is greater than elsewhere within the brain. The majority of this is likely secondary to cerebral atrophy with superimposed subdural hygroma also a possible cause given the prominence. * Multifocal regions of low density throughout the white matter. Nonspecific but can be seen with chronic small vessel ischemic changes. Electronically signed by: Brad Linda MD (06/28/2021 3:47 PM) [id number] ([facility] HASSAN) Course & Med Decision Making: Course & Med Decision Making Pertinent Labs and Imaging studies reviewed. (See chart for details) Patient is on Depakote daily, but patient's denies history of epilepsy and is surprised that she has had a seizure today. As this is a first-time seizure, we will perform head CT scan. Labs and urinalysis also ordered. Patient's called the department and was updated on the patient's status. He was informed that the CT head did not show any acute injury and that we were waiting on a urine sample. Urine sample was eventually obtained via straight cath. CT head does not show any acute process, but does show degenerative changes consistent with patient's history of dementia. Chest x-ray shows bibasilar opacities that could represent atelectasis or may be aspiration as a result of her seizure. Per longterm staff, the patient is known to use up to 2 L of oxygen intermittently. She does not have a daily oxygen requirement. Spoke to Dr. Pérez regarding admission. She will be admitted to the hospital with neuro consult today. Dr. Newman is currently community resource consultant. Dr. Newman requested that 500 keppra IV q12 be initiated in addition to antibiotic therapy. (FCO HASSAN) Dragon Disclaimer: Dragon Disclaimer: This electronic medical record was generated, in whole or in part, using a voice recognition dictation system. (FCO HASSAN) Departure Departure Impression: Primary Impression: Seizure without head trauma Additional Impressions: UTI (urinary tract infection) Qualified Codes: N39.0 - Urinary tract infection, site not specified Opacities of both lungs present on chest x-ray Disposition: ADMITTED INPATIENT Admitting Physician: ESSENCE Suresh) ([facility]AN) Condition: STABLE Referrals: DELMIS BOURGEOIS (PCP) Scripts Cefpodoxime Proxetil (CEFPODOXIME PROXETIL) 200 Mg Tablet 1 TAB PO BID for UTI for 3 Days, #6 TAB Prov: TOYIN RICHARDS MD 07/01/21 Levetiracetam (KEPPRA) 500 Mg Tablet 500 MG PO BID for Seizure for 30 Days, #60 TAB 5 Refills Prov: TOYIN RICHARDS MD 07/01/21 Attending Signature Attending Signature I have reviewed the PA/FUNERAL SALES MANAGER's note and plan of care. I was available for consultation as needed during the patient's visit in the emergency department. I agree with the clinical impression, plan, and disposition. (SERGO GOYAL DO) [facility] HASS[facility] Jun 28, 2021 14:26 SERGO GOYAL DO Jul 01, 2021 22:41
[2021-06-28 15:28] LABS: BASO # 0.1 x10^3/uL (0.0-0.2); BASO % 0 % (0-3); EOS % 0 % (0-3); HEMATOCRIT 47.2 % (36.0-47.0); HEMOGLOBIN 15.8 g/dL (12.0-15.5); LYMPH # 1.8 x10^3/uL (1.0-4.8); LYMPH % 13 % (24-48); MEAN CORPUSCULAR HEMOGLOBIN 32 pg (25-35); MEAN CORPUSCULAR HGB CONC 33 g/dL (31-37); MEAN CORPUSCULAR VOLUME 96 fL (79-100); MONO # 0.7 x10^3/uL (0.0-1.1); MONO % 5 % (0-9); NEUT # 11.3 x10^3/uL (1.8-7.7); NEUT % 81 % (31-73); PLATELET COUNT 187 x10^3/uL (140-400); RED BLOOD COUNT 4.92 x10^6/uL (3.50-5.40); RED CELL DISTRIBUTION WIDTH 14.1 % (11.5-14.5); WHITE BLOOD COUNT 13.8 x10^3/uL (4.0-11.0)
[2021-06-28 15:37] LABS: CALCIUM 9.2 mg/dL (8.5-10.1); CREATININE 0.9 mg/dL (0.6-1.0); GFR 63.9; POTASSIUM 4.2 mmol/L (3.5-5.1)
[2021-06-28 15:43] LABS: VAL ACID 68 mcg/mL (50-100)
--- NOTE | 2021-06-28 15:49 | RAD ---
INDICATION: Reason: seizure / Spl. Instructions: / History: . COMPARISON: May 04, 2017 TECHNIQUE: Axial CT images obtained through the head. One or more of the following individualized dose reduction techniques were utilized for this examinat ion: 1. Automated exposure control; 2. Adjustment of the mA and/or kV according to patient size; 3 . Use of iterative reconstruction technique. FINDINGS: No significant midline shift. Diffuse prominence of the ventricles and sulci which appears increased from prior examination. Multifocal regions of low density within the white matter. No acute intracranial hemorrhage. Prominence of the subdural space most prominent in the frontal region bilaterally appear predominantl y low density. For example at the bilateral frontal region this measures up to 20 mm in thickness. Th ere are some minimal high density within a portion of it but this may be secondary to some vessels co ursing through the area. IMPRESSION: * Diffuse prominence of the ventricles and sulci is seen and increased from prior examination. This can be seen with cerebral atrophy. * Prominence of the subdural space in the bilateral frontal region which is greater than elsewhere w ithin the brain. The majority of this is likely secondary to cerebral atrophy with superimposed subdu ral hygroma also a possible cause given the prominence. * Multifocal regions of low density throughout the white matter. Nonspecific but can be seen with ch ronic small vessel ischemic changes. Electronically signed by: Brad Linda MD (06/28/2021 3:47 PM) [id number]
[2021-06-28 18:02] LABS: BILIRUBIN,URINE NEGATIVE (NEG); CLARITY,URINE CLEAR; COLOR,URINE YELLOW; NITRITE,URINE NEGATIVE (NEG); PH,URINE 6.5 (<5.0-8.0); PROTEIN,URINE NEGATIVE (NEG-TRACE)
[2021-06-28 18:13] LABS: BACTERIA,URINE FEW /HPF (0-FEW); WBC,URINE 20-40 /HPF (0-4)
[2021-06-28 18:15] LABS: RBC,URINE OCC /HPF (0-2)
[2021-06-28] MEDS ORDERED: levETIRAcetam 500 MG in IV DEXTROSE 5% 100ML 100 ML IV ONE (19:00)
[2021-06-28] MEDS ORDERED: cefTRIAXone IV Push 1 GM VIAL. IVP ONE (19:00)
[2021-06-28] MEDS ORDERED: AZITHRMYCN 500MG IVPB FOR OMNI 250 ML IV ONE (19:00)
[2021-06-28 22:20] VITALS: BP 100/61
--- NOTE | 2021-06-28 22:30 | NUR ---
The patient, TRINA KEMP, 61 y/o, F admitted by AARTI YOUSIF MD, was given written information regarding hospital policies, unit procedures and contact persons. pt unable to participate with history, took off nsg home papers. pt is non verbal, turn q 2 hours, scd's. dysphagia, 2 liters nasal cannula. Put in meds from [facility]. Valuables were checked and documented.
[2021-06-29] MEDS ORDERED: DIVA500T2 PO (02:27)
[2021-06-29] MEDS ORDERED: MAGN400O7 PO (02:31)
[2021-06-29] MEDS ORDERED: NYST15PO9 TP (02:31)
[2021-06-29] MEDS ORDERED: CHOL2400 MC (02:42)
[2021-06-29 03:05] VITALS: BP 124/74
[2021-06-29 07:00] VITALS: BP 102/68
[2021-06-29] MEDS ORDERED: ONDANSETRON PF 4 MG/2 ML VIAL. IVP PRN (08:00)
[2021-06-29] MEDS ORDERED: CALCIUM CARBONATE 500 MG TAB.CHEW PO PRN (08:00)
[2021-06-29] MEDS ORDERED: ACETAMINOPHEN 325 MG TABLET. PO PRN (08:00)
--- NOTE | 2021-06-29 08:04 | PDOC1 ---
History and Physical Date of Admission Date of Admission DATE: 06/29/21 TIME: 07:59 Identification/Chief Complaint Chief Complaint Seizure Source Source: Caregiver, Chart review, Patient History of Present Illness History of Present Illness Ms Mack is a 60 yo F w/ PMHx schizophrenia, depression, COPD, smoker,,substance use disorder, depression and baseline cognitive deficits who presents with arrived with EMS with 5-minute seizure. Patient has no history of epilepsy, however takes Depakote every day to treat bipolar disorder shelter reports that she had a 5-minute tonic-clonic seizure followed by 8 minutes of intermittent seizing and postictal state. shelter reports that she was nonverbal after this 13-minute episode, while at baseline she has expressive aphasia. There is no reported head trauma. No prior seizures. WBC 13.8, Hb 15.8, platelets 187, NA 141, K4.2, BUN 28, CR 0.9, valproic acid level 68, UA with moderate leuk esterase negative nitrites, rapid COVID-19 negative Chest radiograph with no acute abnormality. CT head with early diffuse cerebral atrophy. Admitted for further care. Past Medical History Pulmonary: COPD Psych: Anxiety, Schizophrenia Past Surgical History Past Surgical History: No pertinent history Family History Family History reviewed Family History: Family History Unknown Social History Smoke: <1 pack per day ALCOHOL: none Drugs: None Current Problem List Problem List Problems Medical Problems: (1) Opacities of both lungs present on chest x-ray Status: Acute (2) Seizure without head trauma Status: Acute (3) UTI (urinary tract infection) Status: Acute Current Medications Current Medications Current Medications Levetiracetam 500 mg/Dextrose 105 ml @ 420 mls/hr 1X ONCE IV Last administered on 06/28/21at 20:04; Start 06/28/21 at 19:00; Stop 06/28/21 at 19:14; Status DC Ceftriaxone Sodium (Rocephin) 1 gm 1X ONCE IVP Last administered on 06/28/21at 19:51; Start 06/28/21 at 19:00; Stop 06/28/21 at 19:01; Status DC Azithromycin 250 ml @ 250 mls/hr 1X ONCE IV Last administered on 06/28/21at 20:52; Start 06/28/21 at 19:00; Stop 06/28/21 at 19:59; Status DC Active Scripts Active Reported Vitamin D3 (Cholecalciferol (Vitamin D3)) 2,400 Unit/1 Ml Liquid 5,000 Unit MC DAILY Nystatin 15 Gm Powder 15 Gm TP BID Milk Of Magnesia (Magnesium Hydroxide) 400 Mg/5 Ml Oral.susp 400 Mg PO PRN DAILY PRN Depakote (Divalproex Sodium) 500 Mg Tablet.dr 250 Mg PO BID Tylenol (Acetaminophen) 325 Mg Tablet 650 Mg PO PRN Q6HRS PRN Melatonin 3 Mg Tablet 3 Mg PO HS Tums (Calcium Carbonate) 200 Mg Tab.chew 500 Mg PO PRN Q6HRS PRN Zoloft (Sertraline Hcl) 100 Mg Tablet 1 Tab PO DAILY Vitamin B-1 (Thiamine Hcl) 100 Mg Tablet 100 Mg PO DAILY Amlodipine Besylate 5 Mg Tablet 5 Mg PO DAILY Folic Acid 0.8 Mg Capsule 1 Mg PO DAILY Seroquel (Quetiapine Fumarate) 25 Mg Tablet 1 Tab PO QHS Trazodone Hcl 50 Mg Tablet 75 Mg PO PRN Q24HRS Trazodone Hcl 50 Mg Tablet 1 Tab PO QHS Miralax (Polyethylene Glycol 3350) 17 Gm Powd.pack 1 Packet PO DAILY dissolve in water Allergies Allergies: Coded Allergies: Penicillins (Verified Adverse Reaction, Intermediate, Nausea, 08/08/20) Sulfa (Sulfonamide Antibiotics) (Verified Adverse Reaction, Intermediate, Nausea, 08/08/20) ROS Review of System 11 point ROS attempted, fairly confused. Physical Exam General: Alert, Cooperative, mild distress HEENT: Atraumatic, PERRLA, EOMI, Mucous membr. moist/pink Lungs: Clear to auscultation, Normal air movement Heart: S1S2, RRR, no thrills, no rubs, no gallops, no murmurs Abdomen: Normal bowel sounds, Soft, No tenderness, No hepatosplenomegaly, No masses Rectal Exam: not examined Extremities: No clubbing, No cyanosis, No edema, Normal pulses, No tenderness/swelling Skin: No rashes, No breakdown, No significant lesion Neuro: Normal speech, Strength at 5/5 X4 ext, Normal tone, Sensation intact, Cranial nerves 3-12 NL, Reflexes 2+ Psych/Mental Status: Other (Confused) Vitals Vitals Vital Signs Date Time Temp Pulse Resp B/P (MAP) Pulse Ox O2 Delivery O2 Flow Rate FiO2 06/29/21 03:05 97.6 71 19 124/74 (91) 95 Nasal Cannula 2.0 97.6 Labs Labs Laboratory Tests Test 06/28/21 15:25 06/28/21 17:50 06/28/21 19:28 White Blood Count 13.8 x10^3/uL (4.0-11.0) Red Blood Count 4.92 x10^6/uL (3.50-5.40) Hemoglobin 15.8 g/dL (12.0-15.5) Hematocrit 47.2 % (36.0-47.0) Mean Corpuscular Volume 96 fL (79-100) Mean Corpuscular Hemoglobin 32 pg (25-35) Mean Corpuscular Hemoglobin Concent 33 g/dL (31-37) Red Cell Distribution Width 14.1 % (11.5-14.5) Platelet Count 187 x10^3/uL (140-400) Neutrophils (%) (Auto) 81 % (31-73) Lymphocytes (%) (Auto) 13 % (24-48) Monocytes (%) (Auto) 5 % (0-9) Eosinophils (%) (Auto) 0 % (0-3) Basophils (%) (Auto) 0 % (0-3) Neutrophils # (Auto) 11.3 x10^3/uL (1.8-7.7) Lymphocytes # (Auto) 1.8 x10^3/uL (1.0-4.8) Monocytes # (Auto) 0.7 x10^3/uL (0.0-1.1) Eosinophils # (Auto) 0.0 x10^3/uL (0.0-0.7) Basophils # (Auto) 0.1 x10^3/uL (0.0-0.2) Sodium Level 141 mmol/L (136-145) Potassium Level 4.2 mmol/L (3.5-5.1) Chloride Level 106 mmol/L (98-107) Carbon Dioxide Level 27 mmol/L (21-32) Anion Gap 8 (6-14) Blood Urea Nitrogen 28 mg/dL (7-20) Creatinine 0.9 mg/dL (0.6-1.0) Estimated GFR (Cockcroft-Gault) 63.9 Glucose Level 96 mg/dL (70-99) Calcium Level 9.2 mg/dL (8.5-10.1) Valproic Acid (Depakene) Level 68 mcg/mL (50-100) Valproic Acid Last Dose Date Valproic Acid Last Dose Time Urine Collection Type U cath Urine Color Yellow Urine Clarity Clear Urine pH 6.5 (<5.0-8.0) Urine Specific [place] 1.025 (1.000-1.030) Urine Protein Negative mg/dL (NEG-TRACE) Urine Glucose (UA) Negative mg/dL (NEG) Urine Ketones (Stick) Trace mg/dL (NEG) Urine Blood Negative (NEG) Urine Nitrite Negative (NEG) Urine Bilirubin Negative (NEG) Urine Urobilinogen Dipstick 1.0 mg/dL (0.2 mg/dL) Urine Leukocyte Esterase Moderate (NEG) Urine RBC Occ /HPF (0-2) Urine WBC 20-40 /HPF (0-4) Urine Squamous Epithelial Cells Few /LPF Urine Bacteria Few /HPF (0-FEW) Urine Mucus Marked /LPF SARS-CoV-2 Antigen (Rapid) Negative (NEGATIVE) Laboratory Tests Test 06/28/21 15:25 06/28/21 17:50 06/28/21 19:28 White Blood Count 13.8 x10^3/uL (4.0-11.0) Red Blood Count 4.92 x10^6/uL (3.50-5.40) Hemoglobin 15.8 g/dL (12.0-15.5) Hematocrit 47.2 % (36.0-47.0) Mean Corpuscular Volume 96 fL (79-100) Mean Corpuscular Hemoglobin 32 pg (25-35) Mean Corpuscular Hemoglobin Concent 33 g/dL (31-37) Red Cell Distribution Width 14.1 % (11.5-14.5) Platelet Count 187 x10^3/uL (140-400) Neutrophils (%) (Auto) 81 % (31-73) Lymphocytes (%) (Auto) 13 % (24-48) Monocytes (%) (Auto) 5 % (0-9) Eosinophils (%) (Auto) 0 % (0-3) Basophils (%) (Auto) 0 % (0-3) Neutrophils # (Auto) 11.3 x10^3/uL (1.8-7.7) Lymphocytes # (Auto) 1.8 x10^3/uL (1.0-4.8) Monocytes # (Auto) 0.7 x10^3/uL (0.0-1.1) Eosinophils # (Auto) 0.0 x10^3/uL (0.0-0.7) Basophils # (Auto) 0.1 x10^3/uL (0.0-0.2) Sodium Level 141 mmol/L (136-145) Potassium Level 4.2 mmol/L (3.5-5.1) Chloride Level 106 mmol/L (98-107) Carbon Dioxide Level 27 mmol/L (21-32) Anion Gap 8 (6-14) Blood Urea Nitrogen 28 mg/dL (7-20) Creatinine 0.9 mg/dL (0.6-1.0) Estimated GFR (Cockcroft-Gault) 63.9 Glucose Level 96 mg/dL (70-99) Calcium Level 9.2 mg/dL (8.5-10.1) Valproic Acid (Depakene) Level 68 mcg/mL (50-100) Valproic Acid Last Dose Date Valproic Acid Last Dose Time Urine Collection Type U cath Urine Color Yellow Urine Clarity Clear Urine pH 6.5 (<5.0-8.0) Urine Specific [place] 1.025 (1.000-1.030) Urine Protein Negative mg/dL (NEG-TRACE) Urine Glucose (UA) Negative mg/dL (NEG) Urine Ketones (Stick) Trace mg/dL (NEG) Urine Blood Negative (NEG) Urine Nitrite Negative (NEG) Urine Bilirubin Negative (NEG) Urine Urobilinogen Dipstick 1.0 mg/dL (0.2 mg/dL) Urine Leukocyte Esterase Moderate (NEG) Urine RBC Occ /HPF (0-2) Urine WBC 20-40 /HPF (0-4) Urine Squamous Epithelial Cells Few /LPF Urine Bacteria Few /HPF (0-FEW) Urine Mucus Marked /LPF SARS-CoV-2 Antigen (Rapid) Negative (NEGATIVE) VTE Prophylaxis Ordered VTE Prophylaxis Devices: Yes VTE Pharmacological Prophylaxi: Yes Assessment/Plan Assessment/Plan A/P: Seizure - no history. Will hold trazodone for now. Neurology consulted. Cont valproic acid and keppra Acute hypoxic respiratory failure -on 1 L nasal cannulated oxygen. We will wean as tolerated. Likely related to seizure H/O Covid 19 infection 08/05/2020 - recovered Moderate protein malnutrition H/o multi drug resistant E. 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
[2021-06-29] MEDS ORDERED: levETIRAcetam 500 MG in IV DEXTROSE 5% 100ML 100 ML IV SCH (09:00)
[2021-06-29] MEDS: FOLIC ACID 1 MG TABLET. PO SCH (09:00)
[2021-06-29] MEDS: THIAMINE 100 MG TABLET. PO SCH (09:00)
[2021-06-29] MEDS: POLYETHYLENE GLYCOL 3350 17 GM PACKET. PO SCH (09:00)
[2021-06-29] MEDS ORDERED: levETIRAcetam 500 MG TABLET PO SCH (09:00)
[2021-06-29] MEDS ORDERED: VALPROIC ACID (AS SODIUM SALT) 250 MG in IV DEXTROSE 5% 50 ML IV SCH (09:00)
[2021-06-29] MEDS ORDERED: DIVALPROEX DELAYED RELEASE 250 MG TABLET.DR. PO SCH (09:00)
[2021-06-29 11:00] VITALS: BP 110/71
--- NOTE | 2021-06-29 11:12 | PDOC2 ---
NEUROLOGY CONSULT Date of Service DOS: DATE: 06/29/21 TIME: 11:05 Reason for Consult Reason for Consult: New seizure Referring Physician Referring Physician: Dr. Rivas Source Source: Chart review History of Present Illness History of Present Illness The patient is a 61-year-old female who had a 5-minute seizure yesterday afternoon with intermittent seizures after that and then a prolonged postictal state. She has schizophrenia and dimension and at baseline has aphasia. In the emergency department she was found to have a therapeutic valproic acid level, which she takes for her bipolar, not seizure, as well as possible pneumonia and urinary tract infection. She has had no further seizures here. We have started levetiracetam in addition to the valproic acid. Past Medical History Cardiovascular: HTN Pulmonary: Asthma, COPD CENTRAL NERVOUS SYSTEM: Dementia, Other (Dysphagia) GI: GERD Psych: Bipolar, Schizophrenia Renal/: Urinary Incontinence Endocrine: Diabetes Past Surgical History Past Surgical History: Tubal Ligation Family History Family History: No pertinent hx (Unable to obtain) Social History Social History Unable to obtain, she is a senior care resident, Current Medications Current Medications Current Medications Levetiracetam 500 mg/Dextrose 105 ml @ 420 mls/hr 1X ONCE IV Last administered on 06/28/21at 20:04; Start 06/28/21 at 19:00; Stop 06/28/21 at 19:14; Status DC Ceftriaxone Sodium (Rocephin) 1 gm 1X ONCE IVP Last administered on 06/28/21at 19:51; Start 06/28/21 at 19:00; Stop 06/28/21 at 19:01; Status DC Azithromycin 250 ml @ 250 mls/hr 1X ONCE IV Last administered on 06/28/21at 20:52; Start 06/28/21 at 19:00; Stop 06/28/21 at 19:59; Status DC Olanzapine (ZyPREXA ZYDIS) 5 mg PRN BID PRN PO ANXIETY / AGITATION; Start 06/29/21 at 08:00 Ondansetron HCl (Zofran) 4 mg PRN Q4HRS PRN IVP NAUSEA/VOMITING; Start 06/29/21 at 08:00 Acetaminophen (Tylenol) 650 mg PRN Q6HRS PRN PO MILD PAIN / TEMP > 100.3'F; Start 06/29/21 at 08:00 Heparin Sodium (Porcine) (Heparin Sodium) 5,000 unit Q8HRS SQ ; Start 06/29/21 at 14:00 Amlodipine Besylate (Norvasc) 5 mg DAILY PO ; Start 06/29/21 at 09:00 Calcium Carbonate/ Glycine (Tums) 500 mg PRN Q6HRS PRN PO acid reflux; Start 06/29/21 at 08:00 Divalproex Sodium (Depakote) 250 mg BID PO ; Start 06/29/21 at 09:00; Stop 06/29/21 at 08:26; Status DC Polyethylene Glycol (miraLAX PACKET) 17 gm DAILY PO ; Start 06/29/21 at 09:00 Folic Acid (Folic Acid) 1 mg DAILY PO ; Start 06/29/21 at 09:00 Thiamine Mononitrate (Vitamin B-1) 100 mg DAILY PO ; Start 06/29/21 at 09:00 Levetiracetam (Keppra) 500 mg BID PO ; Start 06/29/21 at 09:00; Stop 06/29/21 at 08:26; Status DC Valproic Acid 250 mg/Dextrose 52.5 ml @ 55 mls/hr Q12HR IV Last administered on 06/29/21at 09:52; Start 06/29/21 at 09:00 Levetiracetam 500 mg/Dextrose 105 ml @ 420 mls/hr Q12HR IV Last administered on 06/29/21at 09:11; Start 06/29/21 at 09:00 Active Scripts Active Reported Vitamin D3 (Cholecalciferol (Vitamin D3)) 2,400 Unit/1 Ml Liquid 5,000 Unit MC DAILY Nystatin 15 Gm Powder 15 Gm TP BID Milk Of Magnesia (Magnesium Hydroxide) 400 Mg/5 Ml Oral.susp 400 Mg PO PRN DAILY PRN Depakote (Divalproex Sodium) 500 Mg Tablet.dr 250 Mg PO BID Tylenol (Acetaminophen) 325 Mg Tablet 650 Mg PO PRN Q6HRS PRN Melatonin 3 Mg Tablet 3 Mg PO HS Tums (Calcium Carbonate) 200 Mg Tab.chew 500 Mg PO PRN Q6HRS PRN Zoloft (Sertraline Hcl) 100 Mg Tablet 1 Tab PO DAILY Vitamin B-1 (Thiamine Hcl) 100 Mg Tablet 100 Mg PO DAILY Amlodipine Besylate 5 Mg Tablet 5 Mg PO DAILY Folic Acid 0.8 Mg Capsule 1 Mg PO DAILY Seroquel (Quetiapine Fumarate) 25 Mg Tablet 1 Tab PO QHS Trazodone Hcl 50 Mg Tablet 75 Mg PO PRN Q24HRS Trazodone Hcl 50 Mg Tablet 1 Tab PO QHS Miralax (Polyethylene Glycol 3350) 17 Gm Powd.pack 1 Packet PO DAILY dissolve in water Allergies Allergies: Coded Allergies: Penicillins (Verified Adverse Reaction, Intermediate, Nausea, 08/08/20) Sulfa (Sulfonamide Antibiotics) (Verified Adverse Reaction, Intermediate, Nausea, 08/08/20) ROS Review of System Unable to obtain Physical Exam Physical Examination General: Well-developed, well-nourished white female in no acute distress HEENT: Normocephalic andatraumatic. Temporal arteriespulsatile and nontender. Neck: Supple without bruit, no meningismus Musculoskeletal: Stability:see neurologic. Gait exam:see neurologic. Tone:see neurologic.Strength:see neurologic. Neurological: Mental Status:orientation, memory, attention span/concentration, language, fund of knowledge: Speech is entirely nonsense, does not answer orientation questions, does not follow a few pantomimed exam commands. Cranial Nerves:Pupils equal and reactive to light, extraocular movements areintact, visual gomez are full to threat. Facial sensation is normal. There is no facial asymmetry. Vestibulo-ocular reflex is intact. Palate elevates and tongue protrudes in midline. All other cranial related problems are negative except as mentioned before.Reflexes:2+ and symmetric with flexor plantar responses. Motor:Moves all extremities with normal tone and bulk. Coordination and gait:Not cooperative. Sensory:Responds to pinprick in all 4 extremities. Vitals VITALS Vital Signs Date Time Temp Pulse Resp B/P (MAP) Pulse Ox O2 Delivery O2 Flow Rate FiO2 06/29/21 03:05 97.6 71 19 124/74 (91) 95 Nasal Cannula 2.0 97.6 Labs Labs Laboratory Tests Test 06/28/21 15:25 06/28/21 17:50 06/28/21 19:28 White Blood Count 13.8 x10^3/uL (4.0-11.0) Red Blood Count 4.92 x10^6/uL (3.50-5.40) Hemoglobin 15.8 g/dL (12.0-15.5) Hematocrit 47.2 % (36.0-47.0) Mean Corpuscular Volume 96 fL (79-100) Mean Corpuscular Hemoglobin 32 pg (25-35) Mean Corpuscular Hemoglobin Concent 33 g/dL (31-37) Red Cell Distribution Width 14.1 % (11.5-14.5) Platelet Count 187 x10^3/uL (140-400) Neutrophils (%) (Auto) 81 % (31-73) Lymphocytes (%) (Auto) 13 % (24-48) Monocytes (%) (Auto) 5 % (0-9) Eosinophils (%) (Auto) 0 % (0-3) Basophils (%) (Auto) 0 % (0-3) Neutrophils # (Auto) 11.3 x10^3/uL (1.8-7.7) Lymphocytes # (Auto) 1.8 x10^3/uL (1.0-4.8) Monocytes # (Auto) 0.7 x10^3/uL (0.0-1.1) Eosinophils # (Auto) 0.0 x10^3/uL (0.0-0.7) Basophils # (Auto) 0.1 x10^3/uL (0.0-0.2) Sodium Level 141 mmol/L (136-145) Potassium Level 4.2 mmol/L (3.5-5.1) Chloride Level 106 mmol/L (98-107) Carbon Dioxide Level 27 mmol/L (21-32) Anion Gap 8 (6-14) Blood Urea Nitrogen 28 mg/dL (7-20) Creatinine 0.9 mg/dL (0.6-1.0) Estimated GFR (Cockcroft-Gault) 63.9 Glucose Level 96 mg/dL (70-99) Calcium Level 9.2 mg/dL (8.5-10.1) Valproic Acid (Depakene) Level 68 mcg/mL (50-100) Valproic Acid Last Dose Date Valproic Acid Last Dose Time Urine Collection Type U cath Urine Color Yellow Urine Clarity Clear Urine pH 6.5 (<5.0-8.0) Urine Specific [place] 1.025 (1.000-1.030) Urine Protein Negative mg/dL (NEG-TRACE) Urine Glucose (UA) Negative mg/dL (NEG) Urine Ketones (Stick) Trace mg/dL (NEG) Urine Blood Negative (NEG) Urine Nitrite Negative (NEG) Urine Bilirubin Negative (NEG) Urine Urobilinogen Dipstick 1.0 mg/dL (0.2 mg/dL) Urine Leukocyte Esterase Moderate (NEG) Urine RBC Occ /HPF (0-2) Urine WBC 20-40 /HPF (0-4) Urine Squamous Epithelial Cells Few /LPF Urine Bacteria Few /HPF (0-FEW) Urine Mucus Marked /LPF SARS-CoV-2 Antigen (Rapid) Negative (NEGATIVE) Laboratory Tests Test 06/28/21 15:25 06/28/21 17:50 06/28/21 19:28 White Blood Count 13.8 x10^3/uL (4.0-11.0) Red Blood Count 4.92 x10^6/uL (3.50-5.40) Hemoglobin 15.8 g/dL (12.0-15.5) Hematocrit 47.2 % (36.0-47.0) Mean Corpuscular Volume 96 fL (79-100) Mean Corpuscular Hemoglobin 32 pg (25-35) Mean Corpuscular Hemoglobin Concent 33 g/dL (31-37) Red Cell Distribution Width 14.1 % (11.5-14.5) Platelet Count 187 x10^3/uL (140-400) Neutrophils (%) (Auto) 81 % (31-73) Lymphocytes (%) (Auto) 13 % (24-48) Monocytes (%) (Auto) 5 % (0-9) Eosinophils (%) (Auto) 0 % (0-3) Basophils (%) (Auto) 0 % (0-3) Neutrophils # (Auto) 11.3 x10^3/uL (1.8-7.7) Lymphocytes # (Auto) 1.8 x10^3/uL (1.0-4.8) Monocytes # (Auto) 0.7 x10^3/uL (0.0-1.1) Eosinophils # (Auto) 0.0 x10^3/uL (0.0-0.7) Basophils # (Auto) 0.1 x10^3/uL (0.0-0.2) Sodium Level 141 mmol/L (136-145) Potassium Level 4.2 mmol/L (3.5-5.1) Chloride Level 106 mmol/L (98-107) Carbon Dioxide Level 27 mmol/L (21-32) Anion Gap 8 (6-14) Blood Urea Nitrogen 28 mg/dL (7-20) Creatinine 0.9 mg/dL (0.6-1.0) Estimated GFR (Cockcroft-Gault) 63.9 Glucose Level 96 mg/dL (70-99) Calcium Level 9.2 mg/dL (8.5-10.1) Valproic Acid (Depakene) Level 68 mcg/mL (50-100) Valproic Acid Last Dose Date Valproic Acid Last Dose Time Urine Collection Type U cath Urine Color Yellow Urine Clarity Clear Urine pH 6.5 (<5.0-8.0) Urine Specific [place] 1.025 (1.000-1.030) Urine Protein Negative mg/dL (NEG-TRACE) Urine Glucose (UA) Negative mg/dL (NEG) Urine Ketones (Stick) Trace mg/dL (NEG) Urine Blood Negative (NEG) Urine Nitrite Negative (NEG) Urine Bilirubin Negative (NEG) Urine Urobilinogen Dipstick 1.0 mg/dL (0.2 mg/dL) Urine Leukocyte Esterase Moderate (NEG) Urine RBC Occ /HPF (0-2) Urine WBC 20-40 /HPF (0-4) Urine Squamous Epithelial Cells Few /LPF Urine Bacteria Few /HPF (0-FEW) Urine Mucus Marked /LPF SARS-CoV-2 Antigen (Rapid) Negative (NEGATIVE) Images Images CT head: No significant midline shift. Diffuse prominence of the ventricles and sulci which appears increased from prior examination. Multifocal regions of low density within the white matter. No acute intracranial hemorrhage. Prominence of the subdural space most prominent in the frontal region bilaterally appear predominantly low density. For example at the bilateral frontal region this measures up to 20 mm in thickness. There are some minimal high density within a portion of it but this may be secondary to some vessels coursing through the area. IMPRESSION: * Diffuse prominence of the ventricles and sulci is seen and increased from prior examination. This can be seen with cerebral atrophy. * Prominence of the subdural space in the bilateral frontal region which is greater than elsewhere within the brain. The majority of this is likely secondary to cerebral atrophy with superimposed subdural hygroma also a possible cause given the prominence. * Multifocal regions of low density throughout the white matter. Nonspecific but can be seen with chronic small vessel ischemic changes. Assessment/Plan Assessment/Plan Impression: New seizures in a patient with dementia as well as schizophrenia and bipolar Cerebral atrophy, doubt any surgical subdural fluid Possible urinary tract infection and pneumonia, Covid rapid is negative Recommendations: Levetiracetam and valproic acid intravenously Await swallow evaluation, switch to oral if possible Electroencephalogram I doubt that she would lie still for an MRI and I believe the risks outweigh the benefits of MRI under anesthesia. Thank you for letting me help with the patient's care. ANGELO NELSON MD Jun 29, 2021 11:12
[2021-06-29 12:54] LABS: BASO # 0.1 x10^3/uL (0.0-0.2); BASO % 1 % (0-3); EOS # 0.1 x10^3/uL (0.0-0.7); EOS % 1 % (0-3); HEMATOCRIT 48.3 % (36.0-47.0); HEMOGLOBIN 16.2 g/dL (12.0-15.5); LYMPH # 2.6 x10^3/uL (1.0-4.8); LYMPH % 28 % (24-48); MEAN CORPUSCULAR HEMOGLOBIN 32 pg (25-35); MEAN CORPUSCULAR HGB CONC 34 g/dL (31-37); MEAN CORPUSCULAR VOLUME 95 fL (79-100); MONO # 0.7 x10^3/uL (0.0-1.1); MONO % 7 % (0-9); NEUT # 5.9 x10^3/uL (1.8-7.7); NEUT % 64 % (31-73); PLATELET COUNT 201 x10^3/uL (140-400); RED BLOOD COUNT 5.07 x10^6/uL (3.50-5.40); RED CELL DISTRIBUTION WIDTH 14.2 % (11.5-14.5); WHITE BLOOD COUNT 9.3 x10^3/uL (4.0-11.0)
[2021-06-29 13:10] LABS: ALBUMIN 3.2 g/dL (3.4-5.0); ALBUMIN/GLOBULIN RATIO 0.8 (1.0-1.7); CALCIUM 9.3 mg/dL (8.5-10.1); CREATININE 0.6 mg/dL (0.6-1.0); POTASSIUM 4.1 mmol/L (3.5-5.1); TOTAL BILIRUBIN 0.4 mg/dL (0.2-1.0); TOTAL PROTEIN 7.4 g/dL (6.4-8.2)
--- NOTE | 2021-06-29 13:14 | EEG ---
DATE OF SERVICE: 06/29/2021 ELECTROENCEPHALOGRAM REPORT EEG NUMBER: [id number] performed on 06/29/2021. OBJECTIVE: The patient is a 61-year-old female with dementia and schizophrenia, new seizure. DESCRIPTION: This is a digital study. Electrodes are placed according to the international 10-20 system. Bipolar and referential montages are available. Activation procedures typically include hyperventilation and intermittent photic stimulation. INTERPRETATION: The background consists of 5-6 Hz, 20-50 microvolt activity, symmetrically distributed over parietooccipital regions and reactive to eye opening. Stage 1 sleep is achieved with normal electroencephalogram patterns. Hyperventilation is not performed. Intermittent photic stimulation is noncontributory. All computer identified abnormalities are reviewed and none are actually showing abnormality. IMPRESSION: This electroencephalogram with the patient awake and asleep is abnormal because of a moderate, diffuse disturbance of cerebral activity consistent with any of a variety of toxic or metabolic encephalopathies. There is no focal, paroxysmal, or epileptiform activity. Thank you for letting us help with the patient's care. LEORA DR: Susan TID: [id number]
[2021-06-29] MEDS: cefTRIAXone IV Push 1 GM VIAL. IVP SCH (14:20)
[2021-06-29] MEDS: HEPARIN for SUB-Q USE 5,000 UNIT/ML VIAL. SQ SCH ×2 (14:30→20:47)
[2021-06-29 15:23] VITALS: BP 100/64
--- NOTE | 2021-06-29 15:26 | NUR ---
SS following for discharge planning. SS reviewed pt chart and discussed with pt RN. Pt is LTC resident from [facility], ; fax [phone]. Pt is currently requiring oxygen at two liters nasal canula. COVID19 negative. Pt on IV Rocephin, IV Keppra, and IV Valproic Acid. Sub Q Heparin. ST evaluated and pt on PO diet. Verbal update provided to Diana at [facility]. SS will continue to follow for discharge planning.
[2021-06-29 19:00] VITALS: BP 131/63
[2021-06-29] MEDS: levETIRAcetam 500 MG TABLET PO SCH (20:46)
[2021-06-29] MEDS: DIVALPROEX DELAYED RELEASE 250 MG TABLET.DR. PO SCH (20:47)
[2021-06-29 23:00] VITALS: BP 116/84
--- NOTE | 2021-06-30 01:12 | NUR ---
Patient , Kalpesh Mack, Would like to speak with Dr. Newman regarding EEG. Luke phone number is [phone].
[2021-06-30 02:47] VITALS: BP 104/81
[2021-06-30] MEDS: HEPARIN for SUB-Q USE 5,000 UNIT/ML VIAL. SQ SCH ×3 (05:59→20:32)
[2021-06-30 07:00] VITALS: BP 98/62
[2021-06-30] MEDS: POLYETHYLENE GLYCOL 3350 17 GM PACKET. PO SCH (09:00)
[2021-06-30] MEDS: levETIRAcetam 500 MG TABLET PO SCH ×2 (09:01→20:31)
[2021-06-30] MEDS: DIVALPROEX DELAYED RELEASE 250 MG TABLET.DR. PO SCH ×2 (09:01→20:31)
[2021-06-30] MEDS: FOLIC ACID 1 MG TABLET. PO SCH (09:01)
[2021-06-30] MEDS: THIAMINE 100 MG TABLET. PO SCH (09:01)
[2021-06-30 11:11] VITALS: BP 116/74
--- NOTE | 2021-06-30 12:08 | NUR ---
SS following up with discharge planning. SS reviewed pt chart and discussed with pt RN. Pt is currently requiring oxygen at two liters nasal canula. COVID19 negative. Pt on IV Rocephin. PO diet. Urine culture pending at this time. Pt is LTC resident from [facility], ; fax [phone]. Clinical updates phoned and faxed to [facility]. SS will continue to follow for discharge planning.
[2021-06-30] MEDS: cefTRIAXone IV Push 1 GM VIAL. IVP SCH (13:00)
--- NOTE | 2021-06-30 13:43 | PDOC ---
PROGRESS NOTES Date of Service DATE: 06/30/21 TIME: 13:40 Assessment Problems Medical Problems: (1) Opacities of both lungs present on chest x-ray Status: Acute (2) Seizure without head trauma Status: Acute (3) UTI (urinary tract infection) Status: Acute New seizures in a patient with dementia as well as schizophrenia and bipolar. EEG shows diffuse slowing but no epileptic activity Cerebral atrophy, doubt any surgical subdural fluid Possible urinary tract infection and pneumonia, Covid rapid is negative Plan Levetiracetam and valproic acid, now converted to oral I doubt that she would lie still for an MRI and I believe the risks outweigh the benefits of MRI under anesthesia. Okay for discharge Follow-up with neurology as needed Discussed with Subjective None Objective Vital Signs Date Time Temp Pulse Resp B/P (MAP) Pulse Ox O2 Delivery O2 Flow Rate FiO2 06/30/21 11:11 98.2 65 16 116/74 (88) 95 Nasal Cannula 2.0 98.2 Intake and Output 06/30/21 07:00 Intake Total 400 ml Balance 400 ml Intake Oral 400 ml # Voids 3 # Bowel Movements 3 PHYSICAL EXAM Alert, does tell me her name, follows a few commands, nonsense speech PERRL. EOMI. CN: no focal findings. Muscle tone: normal. Motor: Moves all extremities DTR: 2+ Plantar reflex: flexor Gait: not examined in bed. Sensory exam: no abnormal findings. No cerebellar signs elicited. Review of Relevant I have reviewed the following items glenna (where applicable) has been applied. Labs Laboratory Tests Test 06/28/21 15:25 06/28/21 17:50 06/28/21 19:28 06/29/21 12:40 White Blood Count 13.8 x10^3/uL (4.0-11.0) 9.3 x10^3/uL (4.0-11.0) Red Blood Count 4.92 x10^6/uL (3.50-5.40) 5.07 x10^6/uL (3.50-5.40) Hemoglobin 15.8 g/dL (12.0-15.5) 16.2 g/dL (12.0-15.5) Hematocrit 47.2 % (36.0-47.0) 48.3 % (36.0-47.0) Mean Corpuscular Volume 96 fL (79-100) 95 fL (79-100) Mean Corpuscular Hemoglobin 32 pg (25-35) 32 pg (25-35) Mean Corpuscular Hemoglobin Concent 33 g/dL (31-37) 34 g/dL (31-37) Red Cell Distribution Width 14.1 % (11.5-14.5) 14.2 % (11.5-14.5) Platelet Count 187 x10^3/uL (140-400) 201 x10^3/uL (140-400) Neutrophils (%) (Auto) 81 % (31-73) 64 % (31-73) Lymphocytes (%) (Auto) 13 % (24-48) 28 % (24-48) Monocytes (%) (Auto) 5 % (0-9) 7 % (0-9) Eosinophils (%) (Auto) 0 % (0-3) 1 % (0-3) Basophils (%) (Auto) 0 % (0-3) 1 % (0-3) Neutrophils # (Auto) 11.3 x10^3/uL (1.8-7.7) 5.9 x10^3/uL (1.8-7.7) Lymphocytes # (Auto) 1.8 x10^3/uL (1.0-4.8) 2.6 x10^3/uL (1.0-4.8) Monocytes # (Auto) 0.7 x10^3/uL (0.0-1.1) 0.7 x10^3/uL (0.0-1.1) Eosinophils # (Auto) 0.0 x10^3/uL (0.0-0.7) 0.1 x10^3/uL (0.0-0.7) Basophils # (Auto) 0.1 x10^3/uL (0.0-0.2) 0.1 x10^3/uL (0.0-0.2) Sodium Level 141 mmol/L (136-145) 139 mmol/L (136-145) Potassium Level 4.2 mmol/L (3.5-5.1) 4.1 mmol/L (3.5-5.1) Chloride Level 106 mmol/L (98-107) 105 mmol/L (98-107) Carbon Dioxide Level 27 mmol/L (21-32) 26 mmol/L (21-32) Anion Gap 8 (6-14) 8 (6-14) Blood Urea Nitrogen 28 mg/dL (7-20) 20 mg/dL (7-20) Creatinine 0.9 mg/dL (0.6-1.0) 0.6 mg/dL (0.6-1.0) Estimated GFR (Cockcroft-Gault) 63.9 102.0 Glucose Level 96 mg/dL (70-99) 83 mg/dL (70-99) Calcium Level 9.2 mg/dL (8.5-10.1) 9.3 mg/dL (8.5-10.1) Valproic Acid (Depakene) Level 68 mcg/mL (50-100) Valproic Acid Last Dose Date Valproic Acid Last Dose Time Urine Collection Type U cath Urine Color Yellow Urine Clarity Clear Urine pH 6.5 (<5.0-8.0) Urine Specific Cobb 1.025 (1.000-1.030) Urine Protein Negative mg/dL (NEG-TRACE) Urine Glucose (UA) Negative mg/dL (NEG) Urine Ketones (Stick) Trace mg/dL (NEG) Urine Blood Negative (NEG) Urine Nitrite Negative (NEG) Urine Bilirubin Negative (NEG) Urine Urobilinogen Dipstick 1.0 mg/dL (0.2 mg/dL) Urine Leukocyte Esterase Moderate (NEG) Urine RBC Occ /HPF (0-2) Urine WBC 20-40 /HPF (0-4) Urine Squamous Epithelial Cells Few /LPF Urine Bacteria Few /HPF (0-FEW) Urine Mucus Marked /LPF SARS-CoV-2 RNA ([place]) Negative (Negative) SARS-CoV-2 Antigen (Rapid) Negative (NEGATIVE) BUN/Creatinine Ratio 33 (6-20) Total Bilirubin 0.4 mg/dL (0.2-1.0) Aspartate Amino Transf (AST/SGOT) 25 U/L (15-37) Alanine Aminotransferase (ALT/SGPT) 14 U/L (14-59) Alkaline Phosphatase 100 U/L (46-116) Total Protein 7.4 g/dL (6.4-8.2) Albumin 3.2 g/dL (3.4-5.0) Albumin/Globulin Ratio 0.8 (1.0-1.7) Microbiology 06/28/21 Urine Culture - Preliminary, Resulted Medications Current Medications Levetiracetam 500 mg/Dextrose 105 ml @ 420 mls/hr 1X ONCE IV Last administered on 06/28/21at 20:04; Start 06/28/21 at 19:00; Stop 06/28/21 at 19:14; Status DC Ceftriaxone Sodium (Rocephin) 1 gm 1X ONCE IVP Last administered on 06/28/21at 19:51; Start 06/28/21 at 19:00; Stop 06/28/21 at 19:01; Status DC Azithromycin 250 ml @ 250 mls/hr 1X ONCE IV Last administered on 06/28/21at 20:52; Start 06/28/21 at 19:00; Stop 06/28/21 at 19:59; Status DC Olanzapine (ZyPREXA ZYDIS) 5 mg PRN BID PRN PO ANXIETY / AGITATION; Start 06/29/21 at 08:00 Ondansetron HCl (Zofran) 4 mg PRN Q4HRS PRN IVP NAUSEA/VOMITING; Start 06/29/21 at 08:00 Acetaminophen (Tylenol) 650 mg PRN Q6HRS PRN PO MILD PAIN / TEMP > 100.3'F; Start 06/29/21 at 08:00 Heparin Sodium (Porcine) (Heparin Sodium) 5,000 unit Q8HRS SQ Last administered on 06/30/21at 13:07; Start 06/29/21 at 14:00 Amlodipine Besylate (Norvasc) 5 mg DAILY PO ; Start 06/29/21 at 09:00 Calcium Carbonate/ Glycine (Tums) 500 mg PRN Q6HRS PRN PO acid reflux; Start 06/29/21 at 08:00 Divalproex Sodium (Depakote) 250 mg BID PO ; Start 06/29/21 at 09:00; Stop 06/29/21 at 08:26; Status DC Polyethylene Glycol (miraLAX PACKET) 17 gm DAILY PO ; Start 06/29/21 at 09:00 Folic Acid (Folic Acid) 1 mg DAILY PO Last administered on 06/30/21at 09:01; Start 06/29/21 at 09:00 Thiamine Mononitrate (Vitamin B-1) 100 mg DAILY PO Last administered on 06/30/21at 09:01; Start 06/29/21 at 09:00 Levetiracetam (Keppra) 500 mg BID PO ; Start 06/29/21 at 09:00; Stop 06/29/21 at 08:26; Status DC Valproic Acid 250 mg/Dextrose 52.5 ml @ 55 mls/hr Q12HR IV Last administered on 06/29/21at 09:52; Start 06/29/21 at 09:00; Stop 06/29/21 at 20:25; Status DC Levetiracetam 500 mg/Dextrose 105 ml @ 420 mls/hr Q12HR IV Last administered on 06/29/21at 09:11; Start 06/29/21 at 09:00; Stop 06/29/21 at 20:25; Status DC Ceftriaxone Sodium (Rocephin) 1 gm Q24H IVP Last administered on 06/30/21at 13:00; Start 06/29/21 at 13:00 Levetiracetam (Keppra) 500 mg BID PO Last administered on 06/30/21at 09:01; Start 06/29/21 at 21:00 Divalproex Sodium (Depakote) 250 mg BID PO Last administered on 06/30/21at 09:01; Start 06/29/21 at 21:00 Active Scripts Active Reported Vitamin D3 (Cholecalciferol (Vitamin D3)) 2,400 Unit/1 Ml Liquid 5,000 Unit MC DAILY Nystatin 15 Gm Powder 15 Gm TP BID Milk Of Magnesia (Magnesium Hydroxide) 400 Mg/5 Ml Oral.susp 400 Mg PO PRN DAILY PRN Depakote (Divalproex Sodium) 500 Mg Tablet.dr 250 Mg PO BID Tylenol (Acetaminophen) 325 Mg Tablet 650 Mg PO PRN Q6HRS PRN Melatonin 3 Mg Tablet 3 Mg PO HS Tums (Calcium Carbonate) 200 Mg Tab.chew 500 Mg PO PRN Q6HRS PRN Zoloft (Sertraline Hcl) 100 Mg Tablet 1 Tab PO DAILY Vitamin B-1 (Thiamine Hcl) 100 Mg Tablet 100 Mg PO DAILY Amlodipine Besylate 5 Mg Tablet 5 Mg PO DAILY Folic Acid 0.8 Mg Capsule 1 Mg PO DAILY Seroquel (Quetiapine Fumarate) 25 Mg Tablet 1 Tab PO QHS Trazodone Hcl 50 Mg Tablet 75 Mg PO PRN Q24HRS Trazodone Hcl 50 Mg Tablet 1 Tab PO QHS Miralax (Polyethylene Glycol 3350) 17 Gm Powd.pack 1 Packet PO DAILY dissolve in water Vitals/I & O Vital Sign - Last 24 Hours 06/29/21 06/29/21 06/29/21 06/29/21 15:23 19:00 20:00 23:00 Temp 97.7 97.7 97.8 97.7 97.7 97.8 Pulse 71 74 74 Resp 18 18 18 B/P (MAP) 100/64 (76) 131/63 (85) 116/84 (95) Pulse Ox 92 95 96 O2 Delivery Nasal Cannula Nasal Cannula Nasal Cannula Nasal Cannula O2 Flow Rate 2.0 2.0 2.0 2.0 06/30/21 06/30/21 06/30/21 06/30/21 02:47 07:00 08:00 09:00 Temp 98.2 98.2 98.2 98.2 Pulse 68 74 74 Resp 18 18 B/P (MAP) 104/81 (89) 98/62 (74) 98/62 Pulse Ox 92 96 O2 Delivery Nasal Cannula Nasal Cannula Nasal Cannula O2 Flow Rate 2.0 2.0 2.0 06/30/21 11:11 Temp 98.2 98.2 Pulse 65 Resp 16 B/P (MAP) 116/74 (88) Pulse Ox 95 O2 Delivery Nasal Cannula O2 Flow Rate 2.0 Intake and Output 06/29/21 06/29/21 06/30/21 15:00 23:00 07:00 Intake Total 350 ml 50 ml Balance 350 ml 50 ml Justicifation of Admission Dx: Justifications for Admission: Justification of Admission Dx: Yes Respiratory Failure: Severe Vent Deficit ANGELO NELSON MD Jun 30, 2021 13:43
[2021-06-30] MEDS ORDERED: traZODone 50 MG TABLET. PO PRN (13:45)
--- NOTE | 2021-06-30 13:45 | PDOC ---
[facility] PROGRESS NOTE Date of Service DOS: DATE: 06/30/21 TIME: 13:43 Chief Complaint Chief Complaint A/P: Seizure - no history. Will hold trazodone for now. Neurology consulted. Cont valproic acid and keppra Acute hypoxic respiratory failure -on 1 L nasal cannulated oxygen. We will wean as tolerated. Likely related to seizure H/O Covid 19 infection 08/05/2020 - recovered Moderate protein malnutrition H/o multi drug resistant E. coli - will give rocephin until culture on urine return. Looks like klebsiella UTI - rocephin for klebsiella UTI COPD Depression Schizophrenia - prn zyprexa Chronic back pain FEN - ADA diet PPX - lovenox FULL CODE Dispo - inpatient History of Present Illness History of Present Illness Ms Mack is a 60 yo F w/ PMHx schizophrenia, depression, COPD, smoker,,substance use disorder, depression and baseline cognitive deficits who presents with arrived with EMS with 5-minute seizure. Patient has no history of epilepsy, however takes Depakote every day to treat bipolar disorder [facility] reports that she had a 5-minute tonic-clonic seizure followed by 8 minutes of intermittent seizing and postictal state. [facility] reports that she was nonverbal after this 13-minute episode, while at baseline she has expressive aphasia. There is no reported head trauma. No prior seizures. WBC 13.8, Hb 15.8, platelets 187, NA 141, K4.2, BUN 28, CR 0.9, valproic acid level 68, UA with moderate leuk esterase negative nitrites, rapid COVID-19 negative Chest radiograph with no acute abnormality. CT head with early diffuse cerebral atrophy. Admitted for further care. WBC improved. Urine with Klebsiella urine. More alert today. EEG with no epileptiform activity. Discussed with neurology. Vitals/I&O Vitals/I&O: Vital Signs Date Time Temp Pulse Resp B/P (MAP) Pulse Ox O2 Delivery O2 Flow Rate FiO2 06/30/21 11:11 98.2 65 16 116/74 (88) 95 Nasal Cannula 2.0 98.2 I & O 06/29/21 06/29/21 06/30/21 15:00 23:00 07:00 Intake Total 350 ml 50 ml Balance 350 ml 50 ml Physical Exam General: Alert, Cooperative, mild distress Abdomen: Normal bowel sounds, Soft, No tenderness, No hepatosplenomegaly, No masses Extremities: No clubbing, No cyanosis, No edema, Normal pulses, No tenderness/swelling Skin: No rashes, No breakdown, No significant lesion Assessment and Plan Assessmemt and Plan Problems Medical Problems: (1) Opacities of both lungs present on chest x-ray Status: Acute (2) Seizure without head trauma Status: Acute (3) UTI (urinary tract infection) Status: Acute Comment Review of Relevant I have reviewed the following items glenna (where applicable) has been applied. Medications: Current Medications Medications (Trade) Dose Ordered Sig/Jackie Route PRN Reason Start Time Stop Time Status Last Admin Dose Admin Heparin Sodium (Porcine) (Heparin Sodium) 5,000 unit Q8HRS SQ 06/29/21 14:00 06/30/21 13:07 Levetiracetam (Keppra) 500 mg BID PO 06/29/21 21:00 06/30/21 09:01 Divalproex Sodium (Depakote) 250 mg BID PO 06/29/21 21:00 06/30/21 09:01 Justifications for Admission Other Justification TOYIN RICHARDS MD Jun 30, 2021 13:45
[2021-06-30 15:00] VITALS: BP 99/63
[2021-06-30] MEDS: SERTRALINE 50 MG TABLET. PO SCH (15:17)
[2021-06-30 19:00] VITALS: BP 85/56
[2021-06-30] MEDS ORDERED: QUEtiapine 25 MG TABLET. PO SCH (21:00)
[2021-06-30] MEDS ORDERED: traZODone 50 MG TABLET. PO SCH (21:00)
[2021-06-30 23:00] VITALS: BP 87/63
[2021-07-01 02:56] VITALS: BP 85/56
[2021-07-01] MEDS: HEPARIN for SUB-Q USE 5,000 UNIT/ML VIAL. SQ SCH ×2 (05:42→13:28)
[2021-07-01 07:00] VITALS: BP 123/58
--- NOTE | 2021-07-01 08:51 | PDOC ---
PROGRESS NOTES Date of Service DATE: 07/01/21 TIME: 08:50 Assessment Problems Medical Problems: (1) Opacities of both lungs present on chest x-ray Status: Acute (2) Seizure without head trauma Status: Acute (3) UTI (urinary tract infection) Status: Acute New seizures in a patient with dementia as well as schizophrenia and bipolar. EEG shows diffuse slowing but no epileptic activity Cerebral atrophy, doubt any surgical subdural fluid Possible urinary tract infection and pneumonia, Covid negative Plan Levetiracetam and valproic acid, now converted to oral I doubt that she would lie still for an MRI and I believe the risks outweigh the benefits of MRI under anesthesia. Okay for discharge Follow-up with neurology as needed Subjective None Objective Vital Signs Date Time Temp Pulse Resp B/P (MAP) Pulse Ox O2 Delivery O2 Flow Rate FiO2 07/01/21 07:00 96.5 70 20 123/58 (79) 99 Nasal Cannula 2.0 96.5 Intake and Output 07/01/21 07:00 Intake Total 980 ml Balance 980 ml Intake Oral 980 ml # Voids 3 # Bowel Movements 2 PHYSICAL EXAM Alert, does tell me her name, follows a few commands, nonsense speech PERRL. EOMI. CN: no focal findings. Muscle tone: normal. Motor: Moves all extremities DTR: 2+ Plantar reflex: flexor Gait: not examined in bed. Sensory exam: no abnormal findings. No cerebellar signs elicited. Review of Relevant I have reviewed the following items glenna (where applicable) has been applied. Labs Laboratory Tests Test 06/29/21 12:40 White Blood Count 9.3 x10^3/uL (4.0-11.0) Red Blood Count 5.07 x10^6/uL (3.50-5.40) Hemoglobin 16.2 g/dL (12.0-15.5) Hematocrit 48.3 % (36.0-47.0) Mean Corpuscular Volume 95 fL (79-100) Mean Corpuscular Hemoglobin 32 pg (25-35) Mean Corpuscular Hemoglobin Concent 34 g/dL (31-37) Red Cell Distribution Width 14.2 % (11.5-14.5) Platelet Count 201 x10^3/uL (140-400) Neutrophils (%) (Auto) 64 % (31-73) Lymphocytes (%) (Auto) 28 % (24-48) Monocytes (%) (Auto) 7 % (0-9) Eosinophils (%) (Auto) 1 % (0-3) Basophils (%) (Auto) 1 % (0-3) Neutrophils # (Auto) 5.9 x10^3/uL (1.8-7.7) Lymphocytes # (Auto) 2.6 x10^3/uL (1.0-4.8) Monocytes # (Auto) 0.7 x10^3/uL (0.0-1.1) Eosinophils # (Auto) 0.1 x10^3/uL (0.0-0.7) Basophils # (Auto) 0.1 x10^3/uL (0.0-0.2) Sodium Level 139 mmol/L (136-145) Potassium Level 4.1 mmol/L (3.5-5.1) Chloride Level 105 mmol/L (98-107) Carbon Dioxide Level 26 mmol/L (21-32) Anion Gap 8 (6-14) Blood Urea Nitrogen 20 mg/dL (7-20) Creatinine 0.6 mg/dL (0.6-1.0) Estimated GFR (Cockcroft-Gault) 102.0 BUN/Creatinine Ratio 33 (6-20) Glucose Level 83 mg/dL (70-99) Calcium Level 9.3 mg/dL (8.5-10.1) Total Bilirubin 0.4 mg/dL (0.2-1.0) Aspartate Amino Transf (AST/SGOT) 25 U/L (15-37) Alanine Aminotransferase (ALT/SGPT) 14 U/L (14-59) Alkaline Phosphatase 100 U/L (46-116) Total Protein 7.4 g/dL (6.4-8.2) Albumin 3.2 g/dL (3.4-5.0) Albumin/Globulin Ratio 0.8 (1.0-1.7) Microbiology 06/28/21 Urine Culture - Final, Complete 06/28/21 Antimicrobic Susceptibility - Final, Complete Medications Current Medications Levetiracetam 500 mg/Dextrose 105 ml @ 420 mls/hr 1X ONCE IV Last administered on 06/28/21at 20:04; Start 06/28/21 at 19:00; Stop 06/28/21 at 19:1 4; Status DC Ceftriaxone Sodium (Rocephin) 1 gm 1X ONCE IVP Last administered on 06/28/21at 19:51; Start 06/28/21 at 19:00; Stop 06/28/21 at 19:01; Status DC Azithromycin 250 ml @ 250 mls/hr 1X ONCE IV Last administered on 06/28/21at 20:52; Start 06/28/21 at 19:00; Stop 06/28/21 at 19:59; Status DC Olanzapine (ZyPREXA ZYDIS) 5 mg PRN BID PRN PO ANXIETY / AGITATION; Start at 08:00 Ondansetron HCl (Zofran) 4 mg PRN Q4HRS PRN IVP NAUSEA/VOMITING; Start 06/29/21 at 08:00 Acetaminophen (Tylenol) 650 mg PRN Q6HRS PRN PO MILD PAIN / TEMP > 100.3'F; Start 06/29/21 at 08:00 Heparin Sodium (Porcine) (Heparin Sodium) 5,000 unit Q8HRS SQ Last administered on 07/01/21at 05:42; Start 06/29/21 at 14:00 Amlodipine Besylate (Norvasc) 5 mg DAILY PO ; Start 06/29/21 at 09:00 Calcium Carbonate/ Glycine (Tums) 500 mg PRN Q6HRS PRN PO acid reflux; Start 06/29/21 at 08:00 Divalproex Sodium (Depakote) 250 mg BID PO ; Start 06/29/21 at 09:00; Stop 06/29/21 at 08:26; Status DC Polyethylene Glycol (miraLAX PACKET) 17 gm DAILY PO ; Start 06/29/21 at 09:00 Folic Acid (Folic Acid) 1 mg DAILY PO Last administered on 06/30/21at 09:01; Start 06/29/21 at 09:00 Thiamine Mononitrate (Vitamin B-1) 100 mg DAILY PO Last administered on 06/30/21at 09:01; Start 06/29/21 at 09:00 Levetiracetam (Keppra) 500 mg BID PO ; Start 06/29/21 at 09:00; Stop 06/29/21 at 08:26; Status DC Valproic Acid 250 mg/Dextrose 52.5 ml @ 55 mls/hr Q12HR IV Last administered on 06/29/21at 09:52; Start 06/29/21 at 09:00; Stop 06/29/21 at 20:25; Status DC Levetiracetam 500 mg/Dextrose 105 ml @ 420 mls/hr Q12HR IV Last administered on 06/29/21at 09:11; Start 06/29/21 at 09:00; Stop 06/29/21 at 20:25; Status DC Ceftriaxone Sodium (Rocephin) 1 gm Q24H IVP Last administered on 06/30/21at 13:00; Start 06/29/21 at 13:00 Levetiracetam (Keppra) 500 mg BID PO Last administered on 06/30/21at 20:31; Start 06/29/21 at 21:00 Divalproex Sodium (Depakote) 250 mg BID PO Last administered on 06/30/21at 20:31; Start 06/29/21 at 21:00 Quetiapine Fumarate (SEROquel) 25 mg QHS PO Last administered on 06/30/21at 20:31; Start 06/30/21 at 21:00 Trazodone HCl (Desyrel) 50 mg QHS PO Last administered on 06/30/21at 20:31; Start 06/30/21 at 21:00 Trazodone HCl (Desyrel) 50 mg PRN QHS PRN PO INSOMNIA; Start 06/30/21 at 13:45 Sertraline HCl (Zoloft) 100 mg DAILY PO Last administered on 06/30/21at 15:17; Start 06/30/21 at 14:00 Active Scripts Active Reported Vitamin D3 (Cholecalciferol (Vitamin D3)) 2,400 Unit/1 Ml Liquid 5,000 Unit MC DAILY Nystatin 15 Gm Powder 15 Gm TP BID Milk Of Magnesia (Magnesium Hydroxide) 400 Mg/5 Ml Oral.susp 400 Mg PO PRN DAILY PRN Depakote (Divalproex Sodium) 500 Mg Tablet.dr 250 Mg PO BID Tylenol (Acetaminophen) 325 Mg Tablet 650 Mg PO PRN Q6HRS PRN Melatonin 3 Mg Tablet 3 Mg PO HS Tums (Calcium Carbonate) 200 Mg Tab.chew 500 Mg PO PRN Q6HRS PRN Zoloft (Sertraline Hcl) 100 Mg Tablet 1 Tab PO DAILY Vitamin B-1 (Thiamine Hcl) 100 Mg Tablet 100 Mg PO DAILY Amlodipine Besylate 5 Mg Tablet 5 Mg PO DAILY Folic Acid 0.8 Mg Capsule 1 Mg PO DAILY Seroquel (Quetiapine Fumarate) 25 Mg Tablet 1 Tab PO QHS Trazodone Hcl 50 Mg Tablet 75 Mg PO PRN Q24HRS Trazodone Hcl 50 Mg Tablet 1 Tab PO QHS Miralax (Polyethylene Glycol 3350) 17 Gm Powd.pack 1 Packet PO DAILY dissolve in water Vitals/I & O Vital Sign - Last 24 Hours 06/30/21 06/30/21 06/30/21 06/30/21 09:00 11:11 15:00 19:00 Temp 98.2 98.1 98.0 98.2 98.1 98.0 Pulse 74 65 68 72 Resp 16 16 16 B/P (MAP) 98/62 116/74 (88) 99/63 (75) 85/56 (66) Pulse Ox 95 97 97 O2 Delivery Nasal Cannula Nasal Cannula Nasal Cannula O2 Flow Rate 2.0 2.0 2.0 06/30/21 06/30/21 07/01/21 07/01/21 20:00 23:00 02:56 07:00 Temp 98.0 97.8 96.5 98.0 97.8 96.5 Pulse 61 75 70 Resp 16 16 20 B/P (MAP) 87/63 (71) 85/56 (66) 123/58 (79) Pulse Ox 97 99 99 O2 Delivery Room Air Nasal Cannula Room Air Nasal Cannula O2 Flow Rate 2.0 2.0 2.0 Intake and Output 06/30/21 06/30/21 07/01/21 15:00 23:00 07:00 Intake Total 480 ml 450 ml 50 ml Balance 480 ml 450 ml 50 ml Justicifation of Admission Dx: Justifications for Admission: Justification of Admission Dx: Yes Respiratory Failure: Severe Vent Deficit ANGELO NELSON MD Jul 01, 2021 08:51
[2021-07-01] MEDS: POLYETHYLENE GLYCOL 3350 17 GM PACKET. PO SCH (09:00)
[2021-07-01] MEDS: levETIRAcetam 500 MG TABLET PO SCH (09:04)
[2021-07-01] MEDS: THIAMINE 100 MG TABLET. PO SCH (09:04)
[2021-07-01] MEDS: SERTRALINE 50 MG TABLET. PO SCH (09:05)
[2021-07-01] MEDS: DIVALPROEX DELAYED RELEASE 250 MG TABLET.DR. PO SCH (09:05)
[2021-07-01] MEDS: FOLIC ACID 1 MG TABLET. PO SCH (09:05)
[2021-07-01] MEDS ORDERED: LEVE500T56 PO (10:49)
[2021-07-01] MEDS ORDERED: CEFP200T PO (10:49)
--- NOTE | 2021-07-01 10:52 | SNU/HH DC ---
DISCHARGE ORDERS DISCHARGE INFORMATION: DISCHARGE DATE: Jul 01, 2021 FINAL DIAGNOSIS Problems Medical Problems: (1) Opacities of both lungs present on chest x-ray Status: Acute (2) Seizure without head trauma Status: Acute (3) UTI (urinary tract infection) Status: Acute CONDITION ON DISCHARGE: Stable CODE STATUS: Code Status: Full FDC: SNF STAY <30 DAYS: Yes POST DISCHARGE ORDERS: ACTIVITY ORDERS: No restrictions, Activity as tolerated WEIGHT BEARING STATUS: As tolerated DIET AFTER DISCHARGE: Regular CHECKS AFTER DISCHARGE: CHECKS AFTER DISCHARGE: Check blood press - daily FOLLOW-UP: LAB ORDERS FOR FOLLOW-UP: CBC, CMP TREATMENT/EQUIPMENT ORDERS: ADAPTIVE EQUIPMENT NEEDED: None Physical Therapy For: Evalulation/Treatment Occupational Therapy For: Evaluation/Treatment Speech Language Pathology For: Evaluation/Treatment DISCHARGE MEDICATIONS: Home Meds Active Scripts Cefpodoxime Proxetil (CEFPODOXIME PROXETIL) 200 Mg Tablet, 1 TAB PO BID for UTI for 3 Days, #6 TAB Prov:TOYIN RICHARDS MD 07/01/21 Levetiracetam (KEPPRA) 500 Mg Tablet, 500 MG PO BID for Seizure for 30 Days, #60 TAB 5 Refills Prov:TOYIN RICHARDS MD 07/01/21 Reported Medications Cholecalciferol (Vitamin D3) (VITAMIN D3) 2,400 Unit/1 Ml Liquid, 5000 UNIT MC DAILY for supplement, LIQUID 06/29/21 Nystatin (NYSTATIN) 15 Gm Powder, 15 GM TP BID for in folds, MISC 06/29/21 Magnesium Hydroxide (MILK OF MAGNESIA) 400 Mg/5 Ml Oral.susp, 400 MG PO PRN DAILY PRN for CONSTIPATION, MISC 06/29/21 Divalproex Sodium (DEPAKOTE) 500 Mg Tablet.dr, 250 MG PO BID for seizures, TAB 06/29/21 Acetaminophen (TYLENOL) 325 Mg Tablet, 650 MG PO PRN Q6HRS PRN for fever, TAB 08/03/20 Melatonin (MELATONIN) 3 Mg Tablet, 3 MG PO HS for help sleep, TAB 08/03/20 Calcium Carbonate (TUMS) 200 Mg Tab.chew, 500 MG PO PRN Q6HRS PRN for acid reflux, TAB.CHEW 08/03/20 Sertraline Hcl (ZOLOFT) 100 Mg Tablet, 1 TAB PO DAILY for depression, #30 TAB 5 Refills 08/03/20 Thiamine Hcl (VITAMIN B-1) 100 Mg Tablet, 100 MG PO DAILY for vitamin, TAB 08/03/20 Amlodipine Besylate (AMLODIPINE BESYLATE) 5 Mg Tablet, 5 MG PO DAILY for HTN, TAB 08/03/20 Folic Acid (Folic Acid) 0.8 Mg Capsule, 1 MG PO DAILY for vitamin, CAP 08/03/20 Quetiapine Fumarate (SEROQUEL) 25 Mg Tablet, 1 TAB PO QHS for schizophrenia, #30 TAB 2 Refills 08/03/20 Trazodone Hcl (TRAZODONE HCL) 50 Mg Tablet, 75 MG PO PRN Q24HRS for depression, TAB 08/03/20 Trazodone Hcl (TRAZODONE HCL) 50 Mg Tablet, 1 TAB PO QHS for depression, #30 TAB 08/03/20 Polyethylene Glycol 3350 (MIRALAX) 17 Gm Powd.pack, 1 PACKET PO DAILY for constipation, #30 PACKET 0 Refills dissolve in water 08/03/20 TOYIN RICHARDS MD Jul 01, 2021 10:52
--- NOTE | 2021-07-01 10:56 | PDOC ---
[employer] PROGRESS NOTE Date of Service DOS: DATE: 07/01/21 TIME: 10:54 Chief Complaint Chief Complaint A/P: Seizure - no history. Will hold trazodone for now. Neurology consulted. Cont valproic acid and keppra Acute hypoxic respiratory failure -on 1 L nasal cannulated oxygen. We will wean as tolerated. Likely related to seizure H/O Covid 19 infection 08/05/2020 - recovered Moderate protein malnutrition H/o multi drug resistant E. coli - will give rocephin until culture on urine return. Looks like klebsiella UTI - rocephin for klebsiella UTI COPD Depression Schizophrenia - prn zyprexa Chronic back pain FEN - ADA diet PPX - lovenox FULL CODE Dispo - inpatient History of Present Illness History of Present Illness Ms Mack is a 60 yo F w/ PMHx schizophrenia, depression, COPD, smoker,,substance use disorder, depression and baseline cognitive deficits who presents with arrived with EMS with 5-minute seizure. Patient has no history of epilepsy, however takes Depakote every day to treat bipolar disorder correction reports that she had a 5-minute tonic-clonic seizure followed by 8 minutes of intermittent seizing and postictal state. correction reports that she was nonverbal after this 13-minute episode, while at baseline she has expressive aphasia. There is no reported head trauma. No prior seizures. WBC 13.8, Hb 15.8, platelets 187, NA 141, K4.2, BUN 28, CR 0.9, valproic acid level 68, UA with moderate leuk esterase negative nitrites, rapid COVID-19 negative Chest radiograph with no acute abnormality. CT head with early diffuse cerebral atrophy. Admitted for further care. 06/30: WBC improved. Urine with Klebsiella urine. More alert today. EEG with no epileptiform activity. Discussed with neurology. Urine with pansensitive Klebsiella. Transition oral Vantin given her penicillin allergy history but no side effects from ceftriaxone will discharge on Keppra and outpatient as needed follow-up with neurology. Vitals/I&O Vitals/I&O: Vital Signs Date Time Temp Pulse Resp B/P (MAP) Pulse Ox O2 Delivery O2 Flow Rate FiO2 07/01/21 09:05 70 123/58 07/01/21 08:00 Nasal Cannula 2.0 07/01/21 07:00 96.5 20 99 96.5 I & O 06/30/21 06/30/21 07/01/21 15:00 23:00 07:00 Intake Total 480 ml 450 ml 50 ml Balance 480 ml 450 ml 50 ml Physical Exam General: Alert, Cooperative, mild distress Abdomen: Normal bowel sounds, Soft, No tenderness, No hepatosplenomegaly, No masses Extremities: No clubbing, No cyanosis, No edema, Normal pulses, No tenderness/swelling Skin: No rashes, No breakdown, No significant lesion Assessment and Plan Assessmemt and Plan Problems Medical Problems: (1) Opacities of both lungs present on chest x-ray Status: Acute (2) Seizure without head trauma Status: Acute (3) UTI (urinary tract infection) Status: Acute Comment Review of Relevant I have reviewed the following items glenna (where applicable) has been applied. Medications: Current Medications Medications (Trade) Dose Ordered Sig/Jackie Route PRN Reason Start Time Stop Time Status Last Admin Dose Admin Quetiapine Fumarate (SEROquel) 25 mg QHS PO 06/30/21 21:00 06/30/21 20:31 Trazodone HCl (Desyrel) 50 mg QHS PO 06/30/21 21:00 06/30/21 20:31 Sertraline HCl (Zoloft) 100 mg DAILY PO 06/30/21 14:00 07/01/21 09:05 Justifications for Admission Other Justification TOYIN RICHARDS MD Jul 01, 2021 10:55
--- NOTE | 2021-07-01 10:57 | PDOC3 ---
Discharge Summary Visit Information Date of Admission: Jun 28, 2021 Date of Discharge: Jul 01, 2021 Admitting Diagnosis: Seizure Final Diagnosis Problems Medical Problems: (1) Opacities of both lungs present on chest x-ray Status: Acute (2) Seizure without head trauma Status: Acute (3) UTI (urinary tract infection) Status: Acute Brief Hospital Course Allergies Allergies Coded Allergies Type Severity Reaction Last Updated Verified Penicillins Adverse Reaction Intermediate Nausea 08/08/20 Yes Sulfa (Sulfonamide Antibiotics) Adverse Reaction Intermediate Nausea 08/08/20 Yes Vital Signs Vital Signs Date Time Temp Pulse Resp B/P (MAP) Pulse Ox O2 Delivery O2 Flow Rate FiO2 07/01/21 09:05 70 123/58 07/01/21 08:00 Nasal Cannula 2.0 07/01/21 07:00 96.5 20 99 96.5 Lab Results Laboratory Tests Test 06/29/21 12:40 White Blood Count 9.3 x10^3/uL (4.0-11.0) Red Blood Count 5.07 x10^6/uL (3.50-5.40) Hemoglobin 16.2 g/dL (12.0-15.5) Hematocrit 48.3 % (36.0-47.0) Mean Corpuscular Volume 95 fL (79-100) Mean Corpuscular Hemoglobin 32 pg (25-35) Mean Corpuscular Hemoglobin Concent 34 g/dL (31-37) Red Cell Distribution Width 14.2 % (11.5-14.5) Platelet Count 201 x10^3/uL (140-400) Neutrophils (%) (Auto) 64 % (31-73) Lymphocytes (%) (Auto) 28 % (24-48) Monocytes (%) (Auto) 7 % (0-9) Eosinophils (%) (Auto) 1 % (0-3) Basophils (%) (Auto) 1 % (0-3) Neutrophils # (Auto) 5.9 x10^3/uL (1.8-7.7) Lymphocytes # (Auto) 2.6 x10^3/uL (1.0-4.8) Monocytes # (Auto) 0.7 x10^3/uL (0.0-1.1) Eosinophils # (Auto) 0.1 x10^3/uL (0.0-0.7) Basophils # (Auto) 0.1 x10^3/uL (0.0-0.2) Sodium Level 139 mmol/L (136-145) Potassium Level 4.1 mmol/L (3.5-5.1) Chloride Level 105 mmol/L (98-107) Carbon Dioxide Level 26 mmol/L (21-32) Anion Gap 8 (6-14) Blood Urea Nitrogen 20 mg/dL (7-20) Creatinine 0.6 mg/dL (0.6-1.0) Estimated GFR (Cockcroft-Gault) 102.0 BUN/Creatinine Ratio 33 (6-20) Glucose Level 83 mg/dL (70-99) Calcium Level 9.3 mg/dL (8.5-10.1) Total Bilirubin 0.4 mg/dL (0.2-1.0) Aspartate Amino Transf (AST/SGOT) 25 U/L (15-37) Alanine Aminotransferase (ALT/SGPT) 14 U/L (14-59) Alkaline Phosphatase 100 U/L (46-116) Total Protein 7.4 g/dL (6.4-8.2) Albumin 3.2 g/dL (3.4-5.0) Albumin/Globulin Ratio 0.8 (1.0-1.7) Brief Hospital Course Ms Mack is a 60 yo F w/ PMHx schizophrenia, depression, COPD, smoker,,substance use disorder, depression and baseline cognitive deficits who presents with arrived with EMS with 5-minute seizure. Patient has no history of epilepsy, however takes Depakote every day to treat bipolar disorder [facility] reports that she had a 5-minute tonic-clonic seizure followed by 8 minutes of intermittent seizing and postictal state. [facility] reports that she was nonverbal after this 13-minute episode, while at baseline she has expressive aphasia. There is no reported head trauma. No prior seizures. WBC 13.8, Hb 15.8, platelets 187, NA 141, K4.2, BUN 28, CR 0.9, valproic acid level 68, UA with moderate leuk esterase negative nitrites, rapid COVID-19 negative Chest radiograph with no acute abnormality. CT head with early diffuse cerebral atrophy. Admitted for further care. 06/30: WBC improved. Urine with Klebsiella urine. More alert today. EEG with no epileptiform activity. Discussed with neurology. Urine with pansensitive Klebsiella. Transition oral Vantin given her penicillin allergy history but no side effects from ceftriaxone will discharge on Keppra a nd outpatient as needed follow-up with neurology. Consults: Neurology Problem list: Seizure - no history. Will hold trazodone for now. Neurology consulted. Cont valproic acid and keppra Acute hypoxic respiratory failure -on 1 L nasal cannulated oxygen. Weaned as tolerated. Likely related to seizure H/O Covid 19 infection 08/05/2020 - recovered Moderate protein malnutrition H/o multi drug resistant E. coli - will give rocephin until culture on urine return. Looks like klebsiella quiroga sensitive UTI - rocephin for klebsiella UTI, vantin on d/c COPD Depression Schizophrenia - prn zyprexa Chronic back pain Greater than 30 minutes spent on d/c snf Discharge Information Condition at Discharge: Improved Follow Up: Weeks (1) Disposition/Orders: D/C to Another Facility Scheduled Amlodipine Besylate (Amlodipine Besylate) 5 Mg Tablet, 5 MG PO DAILY for HTN, (Reported) Entered as Reported by: TRISTEN MARTIN on 08/03/202355 Last Action: Continued on 06/29/21807 by TOYIN RICHARDS MD Cefpodoxime Proxetil (Cefpodoxime Proxetil) 200 Mg Tablet, 1 TAB PO BID for UTI for 3 Days, #6 Prescribed by: TOYIN RICHARDS MD on 07/01/21 1049 Cholecalciferol (Vitamin D3) (Vitamin D3) 2,400 Unit/1 Ml Liquid, 5,000 UNIT MC DAILY for supplement, (Reported) Entered as Reported by: Bhavna Lopez on 06/29/21 0242 Last Action: Reviewed on 06/29/21551 by Bhavna Lopez Divalproex Sodium (Depakote) 500 Mg Tablet.dr, 250 MG PO BID for seizures, (Reported) Entered as Reported by: Bhavna Lopez on 06/29/21226 Last Action: Continued on 06/29/21807 by TOYIN RICHARDS MD Folic Acid (Folic Acid) 0.8 Mg Capsule, 1 MG PO DAILY for vitamin, (Reported) Entered as Reported by: TRISTEN MARTIN on 08/03/202355 Last Action: Converted on 06/29/21807 by TOYIN RICHARDS MD Levetiracetam (Keppra) 500 Mg Tablet, 500 MG PO BID for Seizure for 30 Days, #60 Ref 5 Prescribed by: TOYIN RICHARDS MD on 07/01/21 1049 Melatonin (Melatonin) 3 Mg Tablet, 3 MG PO HS for help sleep, (Reported) Entered as Reported by: TRISTEN MARTIN on 08/03/202355 Last Action: Reviewed on 06/29/21551 by Bhavna Lopez Nystatin (Nystatin) 15 Gm Powder, 15 GM TP BID for in folds, (Reported) Entered as Reported by: Bhavna Lopez on 06/29/21 0231 Last Action: Reviewed on 06/29/21551 by Bhavna Lopez Polyethylene Glycol 3350 (Miralax) 17 Gm Powd.pack, 1 PACKET PO DAILY for constipation, #30 Ref 0 (Reported) dissolve in water Entered as Reported by: TRISTEN MARTIN on 08/03/202355 Last Action: Continued on 06/29/21 0808 by TOYIN RICHARDS MD Quetiapine Fumarate (Seroquel) 25 Mg Tablet, 1 TAB PO QHS for schizophrenia, #30 Ref 2 (Reported) Entered as Reported by: TRISTEN MARTIN on 08/03/202355 Last Action: Continued on 06/30/21 1343 by TOYIN RICHARDS MD Sertraline Hcl (Zoloft) 100 Mg Tablet, 1 TAB PO DAILY for depression, #30 Ref 5 (Reported) Entered as Reported by: TRISTEN MARTIN on 08/03/202355 Last Action: Converted on 06/30/21 1343 by TOYIN RICHARDS MD Thiamine Hcl (Vitamin B-1) 100 Mg Tablet, 100 MG PO DAILY for vitamin, (Reported) Entered as Reported by: TRISTEN MARTIN on 08/03/202355 Last Action: Converted on 06/29/21 0808 by TOYIN RICHARSD MD Trazodone Hcl (Trazodone Hcl) 50 Mg Tablet, 1 TAB PO QHS for depression, #30 (Reported) Entered as Reported by: TRISTEN MARTIN on 08/03/202355 Last Action: Continued on 06/30/21 1343 by TOYIN RICHARDS MD Trazodone Hcl (Trazodone Hcl) 50 Mg Tablet, 75 MG PO PRN Q24HRS for depression, (Reported) Entered as Reported by: TRISTEN MARTIN on 08/03/202355 Last Action: Continued on 06/30/21 134 by TOYIN RICHARDS MD Scheduled PRN Acetaminophen (Tylenol) 325 Mg Tablet, 650 MG PO PRN Q6HRS PRN for fever, (Reported) Entered as Reported by: TRISTEN MARTIN on 08/03/202355 Last Action: Reviewed on 06/29/21551 by Bhavna Lopez Calcium Carbonate (Tums) 200 Mg Tab.chew, 500 MG PO PRN Q6HRS PRN for acid reflux, (Reported) Entered as Reported by: TRISTEN MARTIN on 08/03/202355 Last Action: Continued on 06/29/21 08 by TOYIN RICHARDS MD Magnesium Hydroxide (Milk Of Magnesia) 400 Mg/5 Ml Oral.susp, 400 MG PO PRN DAILY PRN for CONSTIPATION, (Reported) Entered as Reported by: Bhavna Lopez on 06/29/21 0231 Last Action: Reviewed on 06/29/21551 by Bhavna Lopez Justicifation of Admission Dx: Justifications for Admission: Justification of Admission Dx: Yes Respiratory Failure: Severe Vent Deficit TOYIN RICHARDS MD Jul 01, 2021 10:57
[2021-07-01 11:00] VITALS: BP 107/75
[2021-07-01] MEDS: cefTRIAXone IV Push 1 GM VIAL. IVP SCH (13:21)
[2021-07-01 15:00] VITALS: BP 95/58
--- NOTE | 2021-07-01 17:43 | NUR ---
Discharge Note: TRINA KEMP [address] Discharge instructions and discharge home medications reviewed with [facility] and a copy given. All questions have been answered and understanding verbalized. Discontinued lines and drains: Peripheral IV intact. Patient discharged to [facility] with Self via [facility]
[2021-07-01] MEDS ORDERED: LACTOBACILLUS RHAMNOSUS GG 1 CAPSULE. PO SCH (21:00)
== END 2021-07-01 17:45 | DRG 100 ==
LOC: ER 12:54 → ED HOLD 18:48 → 6 SOUTH 19:55
PROVIDERS: ADMIT Family Medicine; ATTEND Family Medicine
DX: G40.89 Other seizures (principal); J96.01 Acute respiratory failure with hypoxia; N39.0 Urinary tract infection, site not specified; E44.0 Moderate protein-calorie malnutrition; R47.01 Aphasia; B96.1 Klebsiella pneumoniae [K. pneumoniae] as the cause of diseases classified elsewhere; E11.9 Type 2 diabetes mellitus without complications; F03.90 Unspecified dementia, unspecified severity, without behavioral disturbance, psychotic disturbance, mood disturbance, and anxiety; F17.210 Nicotine dependence, cigarettes, uncomplicated; F20.9 Schizophrenia, unspecified; F31.9 Bipolar disorder, unspecified; G89.29 Other chronic pain; F41.9 Anxiety disorder, unspecified; Z20.822 Contact with and (suspected) exposure to COVID-19; I10 Essential (primary) hypertension; J44.9 Chronic obstructive pulmonary disease, unspecified; Z86.16 Personal history of COVID-19; Z88.0 Allergy status to penicillin; Z98.51 Tubal ligation status; K21.9 Gastro-esophageal reflux disease without esophagitis; Z88.2 Allergy status to sulfonamides
CPT/HCPCS: 36415; 70450; 71045; 80048; 80053; 80164; 81001; 85025; 87077; 87086; 87186; 87426; 95816; 96374; J0456; J0696; J1644; J1953; J3490; J7060; P9612; U0003; U0005; 92526-GN; 92610-GN; 99285-25; G0378